=== PATIENT | female | born 1985 | race Caucasian/White ===

== ENCOUNTER → 2022-05-16 13:32 | Outpatient (BNVA) | payer OTHER, SELFPAY | PROVIDERS: PCP Internal Medicine; Referring Provider Internal Medicine; Visit Provider Internal Medicine | DX: R00.2 Palpitations (principal); R00.0 Tachycardia, unspecified | CPT/HCPCS: 93005; 99202 ==

== ENCOUNTER → 2022-06-07 09:28 | Outpatient (REF) | payer OTHER, SELFPAY ==
--- NOTE | 2022-06-07 09:33 | HM_ITS ---
* Total monitoring time 3 days and 1 hour. * Underlying rhythm is sinus. Average rate 95/Min. Range 58 to 155/Min. * About 45% the time, rate greater than 100/Min. * Very rare supraventricular and ventricular ectopy. * No significant pauses or bradycardia. * Symptoms in patient diary correlate with sinus rhythm and sinus tachycardia. MTDD
--- NOTE | 2022-06-07 09:33 | CA_ITS ---
Transthoracic Echocardiogram Patient (Last, First, Middle): Aziza Miner E Gender: Female Date of : 1985 Age: 36 Procedure Date: 06/07/2022 Procedure Type: Transthoracic Echocardiogram Location: OP Height: 172.72 cm Weight: 87.09 kg BSA: 2.01 m2 Heart Rate: 71 bpm BP: 120 / 75 mmHg Health Aide: EDGAR Referring MD: Gerson Ponce MD Symptoms: R00.2 - Palpitations Study Quality: Fair ECG Rhythm: Sinus Conclusions: - Normal left ventricular size, thickness, systolic function, and wall motion. The visually estimated ejection fraction is between 55-60%. Diastolic function is normal for age. - Normal right ventricular cavity size and systolic function. Findings Left Ventricle Normal left ventricular size, thickness, systolic function, and wall motion. The visually estimated ejection fraction is between 55-60%. Diastolic function is normal for age. Right Ventricle Normal right ventricular cavity size and systolic function. Atria Both atria are normal in size. Aortic Valve Normal aortic valve structure and function. There is no aortic valve stenosis. There is no aortic valve regurgitation. Mitral Valve Normal mitral valve structure and function. There is no mitral valve regurgitation. There is no mitral valve stenosis. Pulmonic Valve The pulmonic valve is likely normal. Tricuspid Valve Normal tricuspid valve structure. There is no tricuspid valve regurgitation. Tricuspid regurgitation envelope is inadequate for calculation of right ventricular systolic pressure. Normal right atrial pressure. Great Vessels All visible segments of the aorta are normal in size. Venous The inferior vena cava is normal in size and collapses greater than 50% with inspiration. Pericardium/Pleural There is no evidence of pericardial effusion. Prior Study Comparison No prior study available for comparison. Measurements 2D Linear Measurements IVSd: 0.80 0.6-0.9/0.6-1.0 cm LVIDd: 4.21 3.9-5.3/4.2-5.9 cm LVIDd Index: 2.09 2.4-3.2/2.2-3.1 cm/m2 LVIDs: 2.62 2.0-3.6 cm LVPWd: 0.76 0.7-1.1 cm LA Diam: 3.10 2.7-3.8/3.0-4.0 cm LAIDs Index: 1.54 1.5-2.3 cm/m2 LV Mass: 121.97 67-162/88-224 g LV Mass Index: 60.68 43-95/49-115 g/m2 LVOT Diam: 1.80 3.0+(-)1.3 cm 2D Systolic Function EF 4C: 67.70 >55% EF 2C: 57.50 >55% EF BiP: 62.20 >55% Mitral Valve MV Pk E: 0.87 MV PK A: 0.89 MV Decel Time: 178.00 E/A: 1.00 E'Lateral: 9.57 E'Medial: 8.81 E/E' Med: 9.90 E/E' Lat: 9.10 PHT: 52.00 MVA PHT: 4.23 Decel [place]: 4.87 Aortic Valve AoV Pk Johny: 1.55 AoV Mn Johny: 1.14 AoV VTI: 0.31 AoV Pk Grad: 10.00 Aov Mn Grad: 6.00 ZAYRA Cont.VTI: 2.34 LVOT LVOT Pk Johny: 1.56 LVOT Mn Johny: 0.98 LVOT VTI: 0.29 LVOT Pk Grad: 10.00 LVOT Mn Grad: 5.00 LVOT Diam: 1.80 LVOT Area: 2.54 Diastolic Function MV Pk E: 0.87 MV Pk A: 0.89 E/A: 1.00 E'Medial: 8.81 E/E' Med: 9.90 E' Laterial: 9.57 E/E' Lat: 9.10 Right Ventricle TAPSE (mm): 20.90 TVS' Johny: 11.40 Tricuspid Valve RA Press: 3.00 Great Vessels Aorta Sinus of Valsalva: 3.10 2.0-3.5 cm Ao Asc: 2.60 2.1-3.4 cm Pulmonary Valve PV Pk Johny: 0.94 Peak PV Grad: 4.00 Updated in Other Vendor System with Status of Final Jude Arias MD electronically signed on 06/09/2022 1:03:28 PM with status of Final
== END ==
LOC: HO.CARD 09:28
PROVIDERS: PCP Internal Medicine; Visit Provider Internal Medicine
DX: R00.2 Palpitations (principal)
CPT/HCPCS: 93242; 93306

== ENCOUNTER 2022-06-11 11:33 | Outpatient (REF) | payer OTHER, SELFPAY ==
[2022-06-11 14:15] LABS: Appearance Urine Hazy; Color Urine ORANGE; Glucose Urine UA 100 mg/dL (Negative); Leukocyte Esterase Urine Negative (Negative); Specific Gravity - Urine 1.025 (1.005-1.025); UMIC TRIGGER UACC YES; Urine Blood Negative (Negative); Urine Ketones Negative (Negative); Urine Protein 30 (1+) mg/dL (Neg-Trace)
[2022-06-11 14:25] LABS: Bacteria Urine None Seen (None Seen); Hyaline Casts Urine 0-2 /LPF (0-2); RBC Urine 0-2 /HPF (0-2); Squamous Epithelial Cell Urine 0-2 /HPF (0-2); WBC Urine 0-5 /HPF (0-5)
== END 2022-06-11 11:34 | disposition home or self-care (01) ==
LOC: HO.HMGCLDS 11:33
PROVIDERS: PCP Internal Medicine; Visit Provider Internal Medicine
DX: R30.0 Dysuria (principal)
CPT/HCPCS: 81001

== ENCOUNTER 2022-06-13 09:24 | Outpatient (REF) | payer OTHER, SELFPAY ==
[2022-06-13 11:23] LABS: Appearance Urine Clear; Color Urine Yellow; Glucose Urine UA Negative (Negative); Leukocyte Esterase Urine Negative (Negative); Nitrite Urine Negative (Negative); PH 7.5 (5.0-9.0); Specific Gravity - Urine 1.015 (1.005-1.025); Urine Blood Negative (Negative); Urine Ketones Negative (Negative); Urine Protein Negative (Neg-Trace)
[2022-06-13 11:24] LABS: Estimated Average Glucose 103 mg/dL; Hemoglobin A1c % 5.2 %
== END 2022-06-13 09:25 | disposition home or self-care (01) ==
LOC: HO.HMGCLDS 09:24
PROVIDERS: PCP Internal Medicine; Visit Provider Internal Medicine
DX: R30.0 Dysuria (principal); R81 Glycosuria
CPT/HCPCS: 36415; 81003; 83036

== ENCOUNTER 2022-06-18 08:32 | Outpatient (REF) | payer OTHER, SELFPAY ==
[2022-06-18 11:22] LABS: MANUAL DIFF FLAG NO
[2022-06-18 11:55] LABS: Alanine Aminotransferase 24 U/L (0-31); Anion Gap 13 (12-20); Aspartate Amino Transferase 19 U/L (5-31); Blood Urea Nitrogen 12 mg/dL (9-16); Carbon Dioxide 24 mmol/L (22-29); Chloride 105 mmol/L (96-108); Cholesterol 165 mg/dL; Estimated Glomerular Filt Rate > 60; Glucose Fasting 106 mg/dL (60-99); HDL Cholesterol 42 mg/dL; LDL Cholesterol Calculated 113 mg/dl; Potassium 4.2 mmol/L (3.3-5.1); Sodium 138 mmol/L (135-145); Triglycerides 51 mg/dL
[2022-06-18 12:06] LABS: TSH reflex Free T4 1.89 uIU/mL (0.32-4.0); Vitamin D 25-OH Total 21.4 ng/mL (>30)
[2022-06-18 12:07] LABS: Basophils Percent Auto 0.4 % (0-2); Eosinophils Absolute Auto 0.2 X10*3/uL (0.0-0.4); Eosinophils Percent Auto 3.7 % (0-4); Hematocrit 43.9 % (37.0-47.0); Hemoglobin 14.5 g/dl (12.0-16.0); Imm Gran Abs Auto 0.01 X10*3/uL (0.00-0.03); Imm Gran Pct Auto 0.2 % (0.0-0.4); Lymphocytes Absolute Auto 1.8 X10*3/uL (1.2-4.9); Lymphocytes Percent Auto 37.6 % (20-40); Mean Corpuscular Hemoglobin 29.2 pg (27.0-33.0); Mean Corpuscular Volume 88.5 fL (80.0-98.0); Mean Platelet Volume 10.4 fL (9.4-12.3); Monocytes Absolute Auto 0.4 X10*3/uL (0.1-1.2); Monocytes Percent Auto 7.4 % (2-11); Neutrophils Absolute Auto 2.5 x10*3/uL (2.0-8.3); Neutrophils Percent Auto 50.7 % (45-73); Platelet Count 306 X10*3/uL (160-400); Red Blood Count 4.96 X10*6/uL (4.20-5.50); White Blood Count 4.8 X10*3/uL (4.8-10.8)
== END 2022-06-18 08:33 | disposition home or self-care (01) ==
LOC: HO.HMGCLDS 08:32
PROVIDERS: PCP Internal Medicine; Visit Provider Internal Medicine
DX: Z00.01 Encounter for general adult medical examination with abnormal findings (principal); F41.1 Generalized anxiety disorder; F98.8 Other specified behavioral and emotional disorders with onset usually occurring in childhood and adolescence; R00.0 Tachycardia, unspecified; I10 Essential (primary) hypertension
CPT/HCPCS: 36415; 80048; 80061; 82306; 84443; 84450; 84460; 85025

== ENCOUNTER → 2022-07-30 14:16 | Outpatient (BNVA) | payer OTHER, SELFPAY | PROVIDERS: PCP Internal Medicine; Referring Provider Internal Medicine; Visit Provider Nurse Practitioner Family | DX: R00.2 Palpitations (principal); R00.0 Tachycardia, unspecified; F41.1 Generalized anxiety disorder | CPT/HCPCS: 99212 ==

== ENCOUNTER 2022-08-22 08:45 | Outpatient (REF) | payer OTHER, SELFPAY ==
[2022-08-22 11:52] LABS: Estimated Average Glucose 97 mg/dL
[2022-08-22 13:03] LABS: Cholesterol 152 mg/dL; Glucose Fasting 109 mg/dL (60-99); HDL Cholesterol 44 mg/dL; LDL Cholesterol Calculated 97 mg/dl; Triglycerides 57 mg/dL
[2022-08-22 13:24] LABS: Vitamin D 25-OH Total 23.5 ng/mL (>30)
== END 2022-08-22 08:46 | disposition home or self-care (01) ==
LOC: HO.HMGCLDS 08:45
PROVIDERS: PCP Internal Medicine; Visit Provider Internal Medicine
DX: Z00.01 Encounter for general adult medical examination with abnormal findings (principal); E66.3 Overweight; E55.9 Vitamin D deficiency, unspecified; R73.01 Impaired fasting glucose
CPT/HCPCS: 36415; 80061; 82306; 82947; 83036

== ENCOUNTER 2023-02-10 11:17 | Outpatient (REF) | payer OTHER, SELFPAY ==
[2023-02-10 15:04] LABS: Influenza A PCR NEGATIVE (Negative); Influenza B PCR NEGATIVE (Negative); Resp Syncy Virus RNA Qual PCR NEGATIVE (Negative); SARS COV2 PCR INHOUSE NEGATIVE (Negative)
== END 2023-02-10 11:18 | disposition home or self-care (01) ==
LOC: HO.LAB 11:17
PROVIDERS: Visit Provider Physician Assistant
DX: Z20.822 Contact with and (suspected) exposure to COVID-19 (principal); R53.83 Other fatigue
CPT/HCPCS: 0241U

== ENCOUNTER 2023-02-11 08:08 | Outpatient (REF) | payer OTHER, SELFPAY ==
[2023-02-11 11:48] LABS: Estimated Average Glucose 103 mg/dL; Hemoglobin A1C 137.7392 umol/L; Hemoglobin A1c % 5.2 %
[2023-02-11 12:00] LABS: Anion Gap 14 (12-20); Blood Urea Nitrogen 12 mg/dL (9-16); Calcium 9.6 mg/dL (8.4-10.2); Carbon Dioxide 25 mmol/L (22-29); Chloride 106 mmol/L (96-108); Estimated Glomerular Filt Rate > 60; Glucose Fasting 107 mg/dL (60-99); Potassium 4.6 mmol/L (3.3-5.1); Sodium 140 mmol/L (135-145)
[2023-02-11 12:11] LABS: Monotest Negative (Negative)
[2023-02-11 12:18] LABS: TSH reflex Free T4 2.69 uIU/mL (0.32-4.0)
== END 2023-02-11 08:09 | disposition home or self-care (01) ==
LOC: HO.HMGCLDS 08:08
PROVIDERS: PCP Internal Medicine; Visit Provider Physician Assistant
DX: R73.01 Impaired fasting glucose (principal); R53.83 Other fatigue
CPT/HCPCS: 36415; 80048; 83036; 84443; 86308

== ENCOUNTER 2023-07-14 08:29 | Outpatient (AMB) | payer OTHER, SELFPAY ==
--- NOTE | 2023-07-14 09:32 | MHC.OFFWIV ---
Intake Vital Signs 07/14/23 09:33 Height 5 ft 8 in Weight 176 lb 4 oz BMI 26.8 BP 110/78 Blood Pressure Location Rt brachial Position Sitting Pulse 117 H Pulse Source Pulse Oximeter Temp 98.0 F Temp Source Temporal Artery Scan Pulse Oximetry (%) 97 Oxygen Delivery Method Room Air Intake Visit Reasons: EST/abdominal discomfort?[phone] Intake Note: pt is here for c/o abd pain/discomfort on and off since last friday Patient Tobacco Use Status: Current everyday Tobacco user Allergies sulfamethoxazole [From BACTRIM] Adverse Reaction (Severe, Verified 07/14/23 10:04) NAUSEA & VOMITING amoxicillin [AMOXICILLIN] Adverse Reaction (Intermediate, Verified 07/14/23 10:04) NAUSEA & VOMITING, (per Pt, able to take) causes numbness in hands Medication List - Last Reconciled 07/14/23 by Harmeet Sears MD cholecalciferol (vitamin D3) 1,250 mcg PO QWEEK 3 months dexmethylphenidate ER 20 mg PO QAM levonorgestrel (Mirena) intrauterine lorazepam 0.5 mg PO DAILY PRN Do you need a note to return to daycare/school/sports/work: Yes HPI EST/abdominal discomfort?[phone] HPI Details 37-year-old female presents to the office for a sick visit. Patient reports she has minimal discomfort in the right lower quadrant. Symptoms have been present over the last week. Symptoms are relieved with passing urine. No relation to food. Occasionally on bending forwards she can reproduce the symptoms. No nausea or vomiting. [facility] Medical History (Updated 02/24/23 @ 12:22 by Roma Garcia MD) Impaired fasting glucose Glucosuria Sinus tachycardia Intermittent palpitations Decreased hearing of both ears [place] of toe Generalized anxiety disorder ADD (attention deficit disorder) Surgical History H/O cervical polypectomy Family History Maternal Grandfather Diabetes mellitus Sister Retinitis pigmentosa Other Retinitis Social History Housing: House Patient Tobacco Use Status: Current everyday Tobacco user Cigarettes Per Day: 10 e-Cigarette/Vaping Use: Never Used service: No Current occupational status: employed Cognitive needs: No Hearing needs: No Vision needs: Yes Physical Exam Vital Signs: Last Vital Signs Temp 98.0 F 07/14/23 09:33 Pulse 117 H 07/14/23 09:33 BP 110/78 07/14/23 09:33 Pulse Ox 97 07/14/23 09:33 Oxygen Delivery Method Room Air 07/14/23 09:33 BMI result Body Mass Index 26.8 Const General: cooperative and healthy appearing Nutritional Appearance: well nourished Orientation/consciousness: patient oriented x3 Limitations: no limitations HEENT Head: Yes normal to inspection Eyes General: appearance normal, both eyes and all related structures Neck Neck: Yes normal visual inspection Chest Chest palpation & inspection: normal palpation of entire chest wall Resp Effort & Inspection: normal respiratory effort Neuro General: patient oriented x3 Assessment & Plan Assessment & Plan (1) Abdominal pain: Code(s): R10.9 - Unspecified abdominal pain Plan: Urinalysis was reviewed. No antibiotics needed. Blood work has been ordered to check for possible hepatitis. Patient was advised that if symptoms persist, she needs to follow-up with her primary care provider. Coding Level of Care Code Est Pt Level 4 (11269) Diagnoses Abdominal pain R10.9
[2023-07-14 09:33] VITALS: BP 110/78; PULSE 117; TEMP 36.7; O2SAT 97; BMI 26.8
== END 2023-07-14 10:26 | disposition home or self-care (01) ==
PROVIDERS: PCP Internal Medicine; Visit Provider Internal Medicine
DX: R10.9 Unspecified abdominal pain (principal)
CPT/HCPCS: 81003; 99214

== ENCOUNTER 2023-07-14 10:13 | Outpatient (REF) | payer OTHER, SELFPAY ==
[2023-07-14 13:31] LABS: Hematocrit 46.7 % (37.0-47.0); Hemoglobin 15.4 g/dl (12.0-16.0); Mean Corpuscular Hemoglobin 29.4 pg (27.0-33.0); Mean Corpuscular Volume 89.1 fL (80.0-98.0); Mean Platelet Volume 10.7 fL (9.4-12.3); Platelet Count 283 X10*3/uL (160-400); Red Blood Count 5.24 X10*6/uL (4.20-5.50); Red Cell Distribution Width 12.1 % (11.0-16.0); White Blood Count 6.4 X10*3/uL (4.8-10.8)
[2023-07-14 13:58] LABS: Alanine Aminotransferase 26 U/L (0-31); Albumin Level 4.6 g/dL (3.5-5.0); Alkaline Phosphatase 56 U/L (39-117); Anion Gap 14 (12-20); Aspartate Amino Transferase 21 U/L (5-31); Bilirubin Direct 0.2 mg/dL (0.0-0.5); Bilirubin Total 0.4 mg/dL (0.0-1.0); Blood Urea Nitrogen 10 mg/dL (9-16); Calcium 9.7 mg/dL (8.4-10.2); Carbon Dioxide 22 mmol/L (22-29); Chloride 108 mmol/L (96-108); Estimated Glomerular Filt Rate > 60; Glucose Random 105 mg/dL (60-115); Potassium 3.7 mmol/L (3.3-5.1); Sodium 140 mmol/L (135-145); Thyroid Stimulating Hormone 0.65 uIU/mL (0.32-4.0); Total Protein 7.9 g/dL (6.5-8.0)
[2023-07-14 14:22] LABS: Erythrocyte Sedimentation Rate 5 MM/HR (0-20)
== END 2023-07-14 10:14 | disposition home or self-care (01) ==
LOC: HO.HMGCLDS 10:13
PROVIDERS: PCP Internal Medicine; Visit Provider Internal Medicine
DX: R10.9 Unspecified abdominal pain (principal)
CPT/HCPCS: 36415; 80048; 80076; 84443; 85027; 85652

== ENCOUNTER 2023-07-15 07:36 | Outpatient (REF) | payer OTHER, SELFPAY ==
[2023-07-15 11:45] LABS: Cholesterol 151 mg/dL (<200); HDL Cholesterol 48 mg/dL (>40); LDL Cholesterol Calculated 92 mg/dL (<100); Triglycerides 55 mg/dL (<150)
== END 2023-07-15 07:37 | disposition home or self-care (01) ==
LOC: HO.HMGCLDS 07:36
PROVIDERS: PCP Internal Medicine; Visit Provider Internal Medicine
DX: R10.9 Unspecified abdominal pain (principal)
CPT/HCPCS: 36415; 80061

== ENCOUNTER 2023-07-22 13:11 | Outpatient (AMB) | payer OTHER, SELFPAY ==
--- NOTE | 2023-07-22 13:16 | A.OFFPC_ITS ---
Vital Signs 07/22/23 13:30 Height 5 ft 8 in Weight 176 lb BMI 26.8 BP 100/68 Blood Pressure Location Rt brachial Position Sitting Pulse 93 Pulse Source Pulse Oximeter Pulse Oximetry (%) 97 Oxygen Delivery Method Room Air Intake Visit Reasons: abd pain, followup from [place] Intake Note: Pt is here today to f/u [place] for abdominal pain Allergies sulfamethoxazole [From BACTRIM] Adverse Reaction (Severe, Verified 07/22/23 13:44) NAUSEA & VOMITING amoxicillin [AMOXICILLIN] Adverse Reaction (Intermediate, Verified 07/22/23 13:44) NAUSEA & VOMITING, (per Pt, able to take) causes numbness in hands Medication List - Last Reconciled 07/22/23 by Roma Garcia MD cholecalciferol (vitamin D3) 1,250 mcg PO QWEEK 3 months dexmethylphenidate ER 30 mg PO DAILY levonorgestrel (Mirena) intrauterine lorazepam 0.5 mg PO DAILY PRN sertraline 37.5mg once a day Tobacco use date assessed: 07/22/23 Dental Screening Dental Screen Date: 07/22/23 Did you have a dental visit in the last 12 months?: Yes Did you have a dental problem in the last 6 months where you did not have access to dental care?: No Was dental information given to patient?: Patient has dentist HPI abd pain, followup from [place] HPI Details 37-year-old lady here today complaining of intermittent episodes of right lower quadrant pain, sometimes radiating to the left lower quadrant, which has been present now for the last 10 days. She denies any accompanying fever, no nausea, no urinary symptoms. CBC, electrolytes, renal function, liver enzymes, and urinalysis done all came back with unremarkable findings. Denies any constipation or blood in stool, no change in bowel habit. [facility] Medical History Impaired fasting glucose Glucosuria Sinus tachycardia Intermittent palpitations Decreased hearing of both ears [place] of toe Generalized anxiety disorder ADD (attention deficit disorder) Surgical History H/O cervical polypectomy Family History Maternal Grandfather Diabetes mellitus Sister Retinitis pigmentosa Other Retinitis Social History Housing: House Patient Tobacco Use Status: Current everyday Tobacco user Cigarettes Per Day: 10 e-Cigarette/Vaping Use: Never Used service: No Current occupational status: employed Cognitive needs: No Hearing needs: No Vision needs: Yes Questionnaire Thrive Questionnaire Date Thrive assessed: 05/01/22 I am a: Patient What is your living situation today?: I have a steady place to live Within the past 12 months, did the food you bought not last and you didn't have the money to get more?: Never true Within the past 12 months, did you worry whether your food would run out before you got money to buy more?: Never true Please select the resources that you would like help with: Food AUDIT C Alcohol Use Questionnaire (AUDIT-C) 1. How often do you have a drink containing alcohol?: Monthly or less 2. How many drinks containing alcohol do you have on a typical day when you are drinking?: 1 or 2 3. How often do you have six or more drinks on one occasion?: Less than monthly Total Score: 2 JOVITA-7 AMB Questionnaire JOVITA-7 Date JOVITA - 7 assessed: 05/01/22 Feeling nervous, anxious, or on edge: 0 = Not at all Not being able to stop or control worryin = Not at all Worrying too much about different things: 0 = Not at all Trouble relaxin = Not at all Being so restless that it is hard to sit still: 0 = Not at all Becoming easily annoyed or irritable: 0 = Not at all Feeling afraid as if something awful might happen: 0 = Not at all Total JOVITA-7 score (0-4 normal; 5-9 mild; 10-14 moderate; 15-21 severe): 0 Source: Developed by Drs. Samuel Lebron, Leia Arambula, Zac Feldman and colleagues, with an educational carlin from [employer]. JOVITA-7 Assessment Billing JOVITA-7 Assessment Tool: JOVITA-7 Assessment 07926 Review of Systems Const Denies body aches, Denies fatigue and Denies fever(s) ENT Reports no additional complaints Card Reports no additional complaints Resp Reports no additional complaints GI Reports as per HPI, Denies bloating, Denies excessive flatus, Denies early satiety, Denies heartburn and Denies vomiting Denies abnormal menses, Denies metrorrhagia, Denies hematuria, Denies urinary frequency, Denies difficulty voiding, Denies dysuria, Denies urinary incontinence, Denies urinary hesitancy, Denies urinary urgency and Denies vaginal discharge Musc Reports no additional complaints Skin/Breast Denies lesions and Denies rash Neuro Reports no additional complaints Endo Reports no additional complaints and Denies fatigue Johnathon/Lymph Reports no additional complaints Physical exam (Primary Care) Vital Signs: Last Vital Signs Pulse 93 07/22/23 13:30 BP 100/68 07/22/23 13:30 Pulse Ox 97 07/22/23 13:30 Oxygen Delivery Method Room Air 07/22/23 13:30 BMI result Body Mass Index 26.8 Tobacco/Smoking Status: Tobacco use Status Tobacco use date assessed 07/22/23 07/22/23 13:34 Patient Tobacco Use Status Current everyday Tobacco 07/22/23 13:18 e-Cigarette/Vaping Use Never Used 07/22/23 13:18 Thrive Assessment: Date of Thrive Assessment Date Thrive assessed 05/01/22 07/22/23 13:18 Const Other: Alert oriented x3, no acute distress noted, ambulatory with normal gait Orientation/consciousness: patient oriented x3 HENMD Mouth: Normal oral and palatal mucosa present, oropharynx normal and moist mucous membranes Neck Neck: Yes full ROM, Yes no lymphadenopathy and Yes supple Resp Auscultation: clear to auscultation bilaterally Cardio Other: S1-S2 present regular rate and rhythm GI Other: normal bowel sounds, soft, slight tenderness on deep palpation over right lower quadrant, no rebound or guarding Auscultation: normal bowel sounds General: Yes no CVA tenderness Back/Spine/Pelvis Back: no CVA tenderness and No back tenderness Skin General skin exam: no rashes or lesions noted Neuro General: patient oriented x3, gait normal, tone normal, moves all extremities, Normal light touch and pain sensation, no focal motor deficits and CN's II-XI intact bilaterally Extrem General: Yes full ROM, Yes no joint enlargement, Yes no clubbing, cyanosis or edema and Yes no pedal edema Results Reviewed Results Reviewed: ENTERED: 07/15/232026 [facility] DR: Roma Garcia MD ORDERED: Lipid Panel Test Result Flag Reference Site Triglyceride 55 <150 mg/dL Desirable Triglyceride: less than 150 mg/dL Borderline High Triglyceride 150-199 mg/dL High Triglyceride: 200-499 mg/dL Very High Triglyceride: greater than or equal to 5OO mg/dL Cholesterol 151 <200 mg/dL Desirable Cholesterol: less than 200 mg/dL Borderline High Cholesterol: 200-239 mg/dL High Cholesterol: greater than 239 mg/dL LDL Calculated 92 <100 mg/dL Desirable LDL: less than 100 mg/dL Near Optimal/Above Optimal LDL: 110-129 mg/dL Borderline High LDL: 130-159 mg/dL High LDL: 160-189 mg/dL Very High LDL: greater than or equal to 190 mg/dL HDL 48 >40 mg/dL Desirable HDL: greater than 40 mg/dL Note: This HDL assay may give artificially low results in patients with liver disease. RUN: 07/22/23 1342 PAGE 1 [facility] [address] [place] [id number] [employer] Passenger Vessel: Albino Hall M.D. Specimen Inquiry Name: Aziza Miner Age/Sex: 37/F : 1985 Unit#: [id number] Attend Dr: Harmeet Sears MD Re07/14/23 Status: DEP REF Location: HO.HMGCLDS Disch: SPEC : [id number] ANTHONY: 07/14/23 STATUS: COMP REQ : [id number] RECD: 07/14/[address] [facility] [address]: Harmeet Sears MD COMP: 07/14/23 ENTERED: 07/14/23-[address] [facility] [address]: Roma Garcia MD ORDERED: CBC No Diff Test Result Flag Reference Site WBC 6.4 4.8-10.8 X10*3/uL RBC 5.24 4.20-5.50 X10*6/uL HGB 15.4 12.0-16.0 g/dl HCT 46.7 37.0-47.0 % MCV 89.1 80.0-98.0 fL MCH 29.4 27.0-33.0 pg MCHC 33.0 31.0-35.0 g/dl RDW 12.1 11.0-16.0 % PLT 283 160-400 X10*3/uL MPV 10.7 9.4-12.3 fL NRBC Pct Auto 0.0 0.0-0.2 /100WBC NRBC Abs Auto 0.000 0.0-0.012 X10*3/uL Assessment and Plan Assessment & Plan (1) Right lower quadrant pain: Code(s): R10.31 - Right lower quadrant pain Plan: Discussed results of recent lab with patient which all showed unremarkable findings. Ordered an ultrasound of the pelvic and transvaginal for further evaluation and management. Patient also advised to follow-up with her OBGYN at [facility] Orders: Orders US pelvic and transvaginal Today R10.31 - Right lower quadrant pain Coding Level of Care Code Est Pt Level 3 (55271) Diagnoses Right lower quadrant pain R10.31 Additional Codes JOVITA-7 Assessment Billing - JOVITA-7 Assessment Tool: JOVITA-7 Assessment 45844 ([id number])
[2023-07-22 13:30] VITALS: BP 100/68; PULSE 93; O2SAT 97; BMI 26.8
== END 2023-07-22 14:23 | disposition home or self-care (01) ==
PROVIDERS: PCP Internal Medicine; Visit Provider Internal Medicine
DX: R10.31 Right lower quadrant pain (principal)
CPT/HCPCS: 99213

== ENCOUNTER 2023-07-22 14:14 | Outpatient (REF) | payer OTHER, SELFPAY ==
--- NOTE | ~2023-07-22 | US_ITS ---
EXAMINATION: US PELVIS CLINICAL INFORMATION: Right lower quadrant pain LMP 07/20/2023 COMPARISON: Pelvic ultrasound 08/04/2018, 06/11/2018 TECHNIQUE: Ultrasound of the pelvis is performed using both transabdominal and transvaginal transducers along with Doppler. Transvaginal imaging is performed due to inadequate visualization transabdominally. FINDINGS: Uterus: The uterus is anteverted and measures 7.0 x 3.0 x 5.3 cm. No focal fibroid The endometrial is homogeneous and measures 0.19 cm. IUD appears in proper position. Adnexa: Both ovaries are visualized. There is normal color flow to the adnexa. There is no ovarian torsion. There is no pelvic ascites or fluid collection. Right ovary measures 3.3 x 1.3 x 2.5 cm. Volume 5.7 mL. Views of the left ovary are slightly limited by bowel gas. Left ovary measures 2.3 x 1.8 x 1.7 cm. Volume 3.5 mL. US/US pelvic and transvaginal IMPRESSION: 1. Normal uterus and ovaries. 2. IUD appears in proper position.
== END 2023-07-22 14:15 | disposition home or self-care (01) ==
LOC: HO.HMGCX 14:14
PROVIDERS: PCP Internal Medicine; Visit Provider Internal Medicine
DX: R10.31 Right lower quadrant pain (principal)
CPT/HCPCS: 76830; 76856

== ENCOUNTER 2023-08-19 11:20 | Outpatient (REF) | payer OTHER, SELFPAY ==
--- NOTE | ~2023-08-19 | US_ITS ---
EXAMINATION: US RETROPERITONEAL LIMITED (RENAL ONLY) CLINICAL INFORMATION: Abdominal pain. Flank pain. COMPARISON: None available. TECHNIQUE: Real-time imaging of the kidneys. FINDINGS: RIGHT KIDNEY: 11.9 x 4.6 x 5.2 cm (SAG x AP x TRV). The kidney is normal in size, contour, and echogenicity. Renal cortical thickness is normal. No calculi or focal parenchymal lesions. No hydronephrosis. 0.4 x 0.4 x 0.5 cm echogenic avascular focus without associated shadowing in the mid kidney could represent an angiomyolipoma. Follow-up in 6 months could be performed with confirm stability. LEFT KIDNEY: 12.4 x 5.2 x 5.4 cm (SAG x AP x TRV). The kidney is normal in size, contour, and echogenicity. Renal cortical thickness is normal. No calculi or focal parenchymal lesions. No hydronephrosis. US/US renal BI IMPRESSION: 1. 0.5 cm echogenic avascular focus in the mid right kidney could represent an angiomyolipoma. Follow-up in 6 months could be performed with confirm stability. 2. Normal appearance of the left kidney.
== END 2023-08-19 11:21 | disposition home or self-care (01) ==
LOC: HO.HMGCX 11:20
PROVIDERS: PCP Internal Medicine; Visit Provider Internal Medicine
DX: R10.9 Unspecified abdominal pain (principal)
CPT/HCPCS: 76775

== ENCOUNTER 2023-10-22 11:24 | Outpatient (AMB) | payer OTHER, SELFPAY ==
--- NOTE | 2023-10-22 11:31 | MHC.OFFVIS ---
Intake Intake Visit Reasons: disorders of kidney and ureter Intake Note: New Patient presents for initial visit for right angiomyolipoma kidney Urology Medications: none Blood Thinner: none Medical Biller Coder Required: No Accompanied by: Self / Same As Patient Allergies sulfamethoxazole [From BACTRIM] Adverse Reaction (Severe, Verified 10/22/23 12:36) NAUSEA & VOMITING amoxicillin [AMOXICILLIN] Adverse Reaction (Intermediate, Verified 10/22/23 12:36) NAUSEA & VOMITING, (per Pt, able to take) causes numbness in hands Medication List - Last Reconciled 10/22/23 by FRANKY Gonzalez- cholecalciferol (vitamin D3) 1,250 mcg PO QWEEK 3 months dexmethylphenidate ER 30 mg PO DAILY levonorgestrel (Mirena) intrauterine lorazepam 0.5 mg PO DAILY PRN sertraline 37.5mg once a day HPI HPI Comments History of Present Illness Details Aziza is a very pleasant 38-year-old female patient of Dr. Garcia. She has a PMH of glucosuria, sinus tachycardia, intermittent palpitations, decreased hearing of both ears, generalized anxiety disorder, and attention deficit disorder. She presents to the office today as a new patient for angiomyolipoma. She discusses having followed up with her PCP for ongoing medical issues she has been experiencing over the last year. She reports initially symptoms started with generalized abdominal pain followed by episodes of tachycardia and lower leg edema. She reports more recently she has been experiencing lower back pain. She discusses following up with her PCP regarding these issues at which time a renal ultrasound was ordered for further assessment evaluation and patient was noted to have angiomyolipoma and recommendations were made for urology referral. These results were reviewed with the patient today. Right kidney is normal in size, contour, and echogenicity. No hydronephrosis or lesions. 0.4 x 0.4 x 0.5 cm echogenic avascular focus without associated shadowing in the mid kidney could represent an angiomyolipoma. Follow-up in 6 months could be performed with confirm stability recommended by radiology report. Left kidney is normal in size, contour, and echogenicity. No calculi, lesions, and or hydronephrosis. She also discusses following up with cardiology and undergoing an echocardiogram and Holter monitor and findings were all normal. When asked she denies any bothersome urinary issues. She denies urinary urgency, urinary frequency, incontinence, nocturia, hematuria, dysuria, foul smelling urine, changes to urinary stream, flank pain, fever, and or chills. She is happy with her current voiding parameters. She does continue to report low back pain and does not feel this is musculoskeletal related. In office urinalysis results reviewed with the patient today. She otherwise offers no other issues or concerns at this time. [facility] Medical History (Updated 10/22/23 @ 22:10 by CARLIE Gonzalez) Right renal mass Impaired fasting glucose Glucosuria Sinus tachycardia Intermittent palpitations Decreased hearing of both ears [place] of toe Generalized anxiety disorder ADD (attention deficit disorder) Surgical History H/O cervical polypectomy Family History Maternal Grandfather Diabetes mellitus Sister Retinitis pigmentosa Other Retinitis Social History Housing: House Patient Tobacco Use Status: Current everyday Tobacco user Cigarettes Per Day: 10 e-Cigarette/Vaping Use: Never Used service: No Current occupational status: employed Cognitive needs: No Hearing needs: No Vision needs: Yes Review of Systems Const Reports as per [facility] Eyes Reports no additional complaints ENT Reports no additional complaints Card Reports as per [facility] Resp Reports no additional complaints GI Reports no additional complaints Reports as per HPI Musc Reports as per HPI Neuro Reports no additional complaints Psych Reports as per [facility] Endo Reports as per HPI Johnathon/Lymph Reports no additional complaints Aller/Immun Reports no additional complaints Physical Exam Const General: cooperative, healthy appearing, comfortable, no acute distress, well developed, alert and awake Orientation/consciousness: patient oriented x3 Limitations: no limitations HEENT Head: Yes normal to inspection, Yes normocephalic and Yes atraumatic Ears: hearing grossly normal bilaterally Eyes General: appearance normal, both eyes and all related structures Neck Neck: Yes normal visual inspection and Yes trachea midline Chest Chest palpation & inspection: normal inspection of the chest Resp Effort & Inspection: normal respiratory effort and able to speak in complete sentences Cardio Rate: regular rate GI Inspection: Yes normal to inspection General: Yes no CVA tenderness Back/Spine/Pelvis Back: no CVA tenderness Skin General skin exam: no rashes or lesions noted Neuro General: patient oriented x3 Extrem General: Yes normal to inspection Psych Appearance: grossly normal and well kempt Mental Status: mental status grossly normal Speech and movement: Normal speech and movement present and Clear speech present Affect: normal affect Attitude: cooperative Thought process: Normal thought process present Thought content: Normal thought content present Insight: Fair insight present (Psych) Judgement: Fair judgement present (Psych) Results AMB Urinalysis, Automated UA Leukoctes 0 Kris/uL Last Edit by Jovana Westbrookrey Westbrook [facility] on 10/22/23 11:45 UA Nitrite Negative Last Edit by Jovana Westbrookrey Westbrook [facility] on 10/22/23 11:45 UA Urobilinogen 0.2 mg/dL Last Edit by Jovana Westbrookrey Westbrook [facility] on 10/22/23 11:45 UA Protein 0 mg/dL Last Edit by Jovana Westbrookrey Westbrook [facility] on 10/22/23 11:45 UA pH 6.0 Last Edit by Jovana Westbrookrey Westbrook [facility] on 10/22/23 11:45 UA Blood 0 Justin/uL Last Edit by Jovana Westbrookrey Westbrook [facility] on 10/22/23 11:45 UA Specific [place] 1.030 Last Edit by Jovana Westbrookrey Westbrook [facility] on 10/22/23 11:45 UA Ketone Negative Last Edit by Jovana Westbrook [facility] on 10/22/23 11:45 UA Bilirubin 0 mg/dL Last Edit by Jovana Westbrookrey Westbrook [facility] on 10/22/23 11:45 UA Glucose 0 mg/dL Last Edit by Jovana Westbrookrey Westbrook [facility] on 10/22/23 11:45 Results Reviewed Results Reviewed: Laboratory Last Values Urine pH (Auto) 6.0 10/22/23 11:42 Specific [place] (Auto) 1.030 10/22/23 11:42 Urine Protein (Auto) 0 mg/dL 10/22/23 11:42 Glucose (UA)(Auto) 0 mg/dL 10/22/23 11:42 Urine Ketones (Auto) Negative 10/22/23 11:42 Urine Blood (Auto) 0 Justin/uL 10/22/23 11:42 Urine Nitrite (Auto) Negative 10/22/23 11:42 Urine Bilirubin (Auto) 0 mg/dL 10/22/23 11:42 Urine Urobilinogen (Auto) 0.2 mg/dL 10/22/23 11:42 Leukocyte Esterase (Auto) 0 Kris/uL 10/22/23 11:42 Date of Service: 08/19/23 EXAMINATION: US RETROPERITONEAL LIMITED (RENAL ONLY) Real-time imaging of the kidneys. FINDINGS: RIGHT KIDNEY: 11.9 x 4.6 x 5.2 cm (SAG x AP x TRV). The kidney is normal in size, contour, and echogenicity. Renal cortical thickness is normal. No calculi or focal parenchymal lesions. No hydronephrosis. 0.4 x 0.4 x 0.5 cm echogenic avascular focus without associated shadowing in the mid kidney could represent an angiomyolipoma. Follow-up in 6 months could be performed with confirm stability. LEFT KIDNEY: 12.4 x 5.2 x 5.4 cm (SAG x AP x TRV). The kidney is normal in size, contour, and echogenicity. Renal cortical thickness is normal. No calculi or focal parenchymal lesions. No hydronephrosis. IMPRESSION: 1. 0.5 cm echogenic avascular focus in the mid right kidney could represent an angiomyolipoma. Follow-up in 6 months could be performed with confirm stability. 2. Normal appearance of the left kidney. Assessment & Plan Assessment & Plan (1) Angiolipoma: Code(s): D17.9 - Benign lipomatous neoplasm, unspecified Plan In office urinalysis results reviewed with the patient today; as noted above. Recent renal ultrasound results reviewed with the patient today; as noted above. Discussed at length potential causes of angiomyolipomas; this was discussed at length; reassurance provided. She currently denies any bothersome urinary issues or concerns. She reports be happy with current voiding parameters. Discussed obtaining MRI in 6 months for surveillance imaging. Follow-up in 6 months with imaging to be completed prior; or sooner with any issues, concerns, and or questions. Orders: Orders AMB Urinalysis Automated Today R33.9 - Retention of urine, unspecified MR kidney wo/w con Today D17.9 - Benign lipomatous neoplasm, unspecified Patient Instructions: The patient had an opportunity to ask questions regarding the treatment plan. All questions were answered. Physical exam, labs, and imaging were discussed and reviewed in detail. As well as risks, benefits, and discussion of treatment choices. No major barriers to understanding were identified. The patient expressed understanding and agreement with the above treatment plan. The patient was made aware they should contact our office by phone for worsening of their current condition, the appearance of new symptoms, or with any questions or concerns. Compliance is encouraged with any medications and follow up testing that is ordered. It is a privilege to be allowed the opportunity to participate in? your urological care.? Again, if you have any questions or concerns If you have any questions or concerns please do not hesitate to contact me. The office is [phone]. This note is constructed using voice recognition software. While every effort has been made to ensure accuracy [employer] errors may have been included. Yours sincerely, RENA Gonzalez Coding Level of Care Code New Pt Level 3 (47658) Diagnoses Angiolipoma D17.9
== END 2023-10-22 12:19 | disposition home or self-care (01) ==
PROVIDERS: PCP Internal Medicine; Visit Provider Nurse Practitioner Family
DX: D17.9 Benign lipomatous neoplasm, unspecified (principal)
CPT/HCPCS: 99203

== ENCOUNTER → 2023-10-22 11:24 | Outpatient (BNVA) | payer OTHER, SELFPAY | PROVIDERS: PCP Internal Medicine; Visit Provider Nurse Practitioner Family | DX: D17.9 Benign lipomatous neoplasm, unspecified (principal) | CPT/HCPCS: 81003; 99202 ==

== ENCOUNTER 2024-01-26 08:56 | Outpatient (AMB) | payer OTHER, SELFPAY ==
[2024-01-26 08:57] VITALS: BP 120/60; PULSE 96; TEMP 36.5; O2SAT 98; BMI 28.1
--- NOTE | 2024-01-26 08:57 | AM.OFFWIN_ITS ---
Intake Vital Signs 01/26/24 08:57 Height 5 ft 8 in Weight 185 lb BMI 28.1 BP 120/60 Blood Pressure Location Lt brachial Position Sitting Pulse 96 Pulse Source Pulse Oximeter Temp 97.7 F Temp Source Temporal Artery Scan Pulse Oximetry (%) 98 Oxygen Delivery Method Room Air Intake Visit Reasons: EP bump on lower back Intake Note: pt is here today for bump on lower back started friday Patient Tobacco Use Status: Current everyday Tobacco user Allergies sulfamethoxazole [From BACTRIM] Adverse Reaction (Severe, Verified 01/26/24 09:00) NAUSEA & VOMITING amoxicillin [AMOXICILLIN] Adverse Reaction (Intermediate, Verified 01/26/24 09:00) NAUSEA & VOMITING, (per Pt, able to take) causes numbness in hands Do you need a note to return to daycare/school/sports/work: No HPI HPI Comments History of Present Illness Details Patient presents to the walk-in today for sick visit Reports she was stretching and felt a lump to her right lower back/upper buttock Nontender to palpation Denies fever, chills, weakness, dizziness, syncope, drainage from the site, body aches, fatigue [facility] Medical History (Updated 01/26/24 @ 10:53 by Bree Diaz APRN, DATA CAPTURE SPECIALIST) Right renal mass Impaired fasting glucose Glucosuria Sinus tachycardia Intermittent palpitations Decreased hearing of both ears [place] of toe Generalized anxiety disorder ADD (attention deficit disorder) Surgical History H/O cervical polypectomy Family History Maternal Grandfather Diabetes mellitus Sister Retinitis pigmentosa Other Retinitis Social History Housing: House Patient Tobacco Use Status: Current everyday Tobacco user Cigarettes Per Day: 10 e-Cigarette/Vaping Use: Never Used service: No Current occupational status: employed Cognitive needs: No Hearing needs: No Vision needs: Yes Review of Systems Const All systems reviewed & are unremarkable except as noted in HPI and below Physical Exam Vital Signs: Last Vital Signs Temp 97.7 F 01/26/24 08:57 Pulse 96 01/26/24 08:57 BP 120/60 01/26/24 08:57 Pulse Ox 98 01/26/24 08:57 Oxygen Delivery Method Room Air 01/26/24 08:57 BMI result Body Mass Index 28.1 General: awake, alert, oriented. Answers questions appropriately. Fully engaged in examination. Skin: warm, dry, intact HEENT: Normocephalic. Hearing intact. Cardiac: External chest normal in appearance. Respiratory: No cough, audible wheezing or stridor. Abdomen: without gross distension. MS: No obvious swelling or deformities. nontender palpable band upper right gluteus katrin Neurological: Oriented to person, place, time and situation. Thought process intact. No gait abnormalities appreciated. Psychiatric: Appropriate mood and affect. Good judgment and insight. Assessment & Plan Assessment & Plan (1) Lipoma of buttock: Code(s): D17.1 - Benign lipomatous neoplasm of skin and subcutaneous tissue of trunk Plan nontender band across upper right gluteus katrin without signs of local or systemic infection. Reassurance provided. Follow up with pcp or return to walkin for any new or worsening symptoms. Coding Level of Care Code Est Pt Level 3 (92769) Diagnoses Lipoma of buttock D17.1
== END 2024-01-26 09:46 | disposition home or self-care (01) ==
PROVIDERS: PCP Internal Medicine; Visit Provider Registered Nurse Emergency
DX: D17.1 Benign lipomatous neoplasm of skin and subcutaneous tissue of trunk (principal)
CPT/HCPCS: 99213

== ENCOUNTER 2024-04-09 09:20 | Outpatient (REF) | payer OTHER, SELFPAY ==
--- NOTE | ~2024-04-09 | MR_ITS ---
EXAMINATION: MR KIDNEY WITHOUT AND WITH CONTRAST CLINICAL INFORMATION: Right kidney echogenic lesion. COMPARISON: Ultrasound examination of the kidneys on 08/19/2023 TECHNIQUE: Examination was performed in a high field strength MRI scanner. Multiplanar multiphasic imaging of the abdomen was performed without IV contrast enhancement. Multiphasic Axial T1 weighted fat suppressed images of the upper abdomen were obtained after IV injection of 8.5 mL Gadavist. Coronal T1 weighted fat-suppressed images of the abdomen were obtained following the dynamic axial series. FINDINGS: LIVER: The liver shows a 1.0 cm round T2 hyperintense lesion in left hepatic lobe segment IVb, showing centripetal contrast filling, consistent with cavernous hemangioma. The calculated hepatic fat percentage is 3.6%, compatible with normal. HEPATOBILIARY: Gallbladder is normal without filling defects. Common bile duct is not dilated. PANCREAS: No focal pancreatic lesion with abnormal signal can be seen. SPLEEN: Spleen is normal in size without focal lesion. ADRENAL: Bilateral adrenal glands are normal in shape and size. KIDNEYS: Bilateral kidneys are normal in size without focal lesion. A shadow cortical defect, containing retroperitoneal fat is seen at posterior lateral mid right renal cortex. No focal lesion with abnormal signal or enhancement could be seen in bilateral kidneys. MR/MR kidney wo/w con IMPRESSION: 1. 1.0 cm cavernous hemangioma in left hepatic lobe segment IVb. 2. No evidence of cholelithiasis or choledocholithiasis. 3. No evidence of bile duct dilatation. 4. Apart from shallow right posterior lateral mid renal cortical defect containing retroperitoneal fat, No focal renal lesion with abnormal signal or enhancement, including the right mid kidney over the site of hyperechoic lesion found on ultrasound examination.
[2024-04-09] MEDS: gadobutroL 10 ML VIAL IVPUSH (10:33)
== END 2024-04-09 09:21 | disposition home or self-care (01) ==
LOC: HO.MRI 09:20
PROVIDERS: PCP Internal Medicine; Visit Provider Nurse Practitioner Family
DX: D17.9 Benign lipomatous neoplasm, unspecified (principal)
CPT/HCPCS: 74183; A9585

== ENCOUNTER 2024-04-19 09:58 | Outpatient (AMB) | payer OTHER, SELFPAY ==
--- NOTE | 2024-04-19 10:20 | MHC.OFFWIV ---
Intake Vital Signs 04/19/24 10:25 Height 5 ft 8 in Weight 187 lb 4 oz BMI 28.5 BP 122/72 Blood Pressure Location Lt brachial Position Sitting Pulse 76 Pulse Source Pulse Oximeter Temp 98.6 F Temp Source Oral Pulse Oximetry (%) 97 Oxygen Delivery Method Room Air Intake Visit Reasons: EP cold symptoms, ear ache [phone] Intake Note: Patient here for cold symptoms and left ear pain which has been present since friday. Patient Tobacco Use Status: Former Tobacco user Smoking End Date: 09/08/23 Allergies sulfamethoxazole [From BACTRIM] Adverse Reaction (Severe, Verified 01/26/24 09:00) NAUSEA & VOMITING amoxicillin [AMOXICILLIN] Adverse Reaction (Intermediate, Verified 01/26/24 09:00) NAUSEA & VOMITING, (per Pt, able to take) causes numbness in hands Do you need a note to return to daycare/school/sports/work: No HPI HPI Comments History of Present Illness Details Patient is a 38-year-old female complaining of 4 days of cold symptoms and 2 days of left ear pain. She states she has had a sore throat, cough, head congestion and has just developed pain in her left ear yesterday. She states she has a history of ear infections as a child but never developed a fever with them. She denies any shortness of breath, chest pain, wheezing, chest congestion, sinus pain or fever. She has not tried taking any medications to make herself feel better. [facility] Medical History (Updated 04/19/24 @ 10:50 by Carol Zabala PA-C) Right renal mass Impaired fasting glucose Glucosuria Sinus tachycardia Intermittent palpitations Decreased hearing of both ears [place] of toe Generalized anxiety disorder ADD (attention deficit disorder) Surgical History H/O cervical polypectomy Family History Maternal Grandfather Diabetes mellitus Sister Retinitis pigmentosa Other Retinitis Social History Housing: House Patient Tobacco Use Status: Former Tobacco user Cigarettes Per Day: 10 e-Cigarette/Vaping Use: Never Used service: No Current occupational status: employed Cognitive needs: No Hearing needs: No Vision needs: Yes Review of Systems Const All systems reviewed & are unremarkable except as noted in HPI and below Physical Exam Vital Signs: Last Vital Signs Temp 98.6 F 04/19/24 10:25 Pulse 76 04/19/24 10:25 BP 122/72 04/19/24 10:25 Pulse Ox 97 04/19/24 10:25 Oxygen Delivery Method Room Air 04/19/24 10:25 BMI result Body Mass Index 28.5 Const General: cooperative, healthy appearing, comfortable and no acute distress Orientation/consciousness: patient oriented x3 Limitations: no limitations HEENT Head: Yes normal to inspection Ears: hearing grossly normal bilaterally, external ears normal, TM normal on the right and TM abnormal dull, erythematous and with loss of landmarks General nose exam: Normal external nose present, Normal nares present and No nasal discharge present Face and sinus: Yes normal facial exam and Yes sinuses nontender Mouth: Normal oral and palatal mucosa present and moist mucous membranes Throat: Yes tonsils normal, Yes uvula midline and Yes posterior oropharynx abnormal (Erythema) Eyes General: appearance normal, both eyes and all related structures Neck Neck: Yes normal visual inspection Resp Effort & Inspection: normal respiratory effort, able to speak in complete sentences, no respiratory distress, not tachypneic, no tripod positioning and no use of accessory muscles Skin General skin exam: no rashes or lesions noted Neuro General: patient oriented x3 Extrem General: Yes normal to inspection and Yes no clubbing, cyanosis or edema Assessment & Plan Assessment & Plan (1) Otitis media: Code(s): H66.90 - Otitis media, unspecified, unspecified ear Qualifiers: Otitis media type: other nonsuppurative Chronicity: acute Laterality: left Recurrence: non-recurrent Qualified Code(s): H65.192 - Other acute nonsuppurative otitis media, left ear Plan: Send prescription for Cefuroxime as pt allergic to amoxicillin. Plan See above Medications: New cefuroxime axetil 500 mg PO Q12H 10 tabs 0RF Coding Level of Care Code Est Pt Level 3 (85637) Diagnoses Other non-recurrent acute nonsuppurative otitis media of left ear H65.192 Otitis media type: other nonsuppurative Chronicity: acute Laterality: left Recurrence: non-recurrent
[2024-04-19 10:25] VITALS: BP 122/72; PULSE 76; TEMP 37; O2SAT 97; BMI 28.5
== END 2024-04-19 11:38 | disposition home or self-care (01) ==
PROVIDERS: PCP Internal Medicine; Visit Provider Physician Assistant
DX: H65.192 Other acute nonsuppurative otitis media, left ear (principal)
CPT/HCPCS: 99213

== ENCOUNTER 2024-04-20 09:15 | Outpatient (AMB) | payer OTHER, SELFPAY ==
--- NOTE | 2024-04-20 09:16 | A.OFFVIS_ITS ---
Intake Visit Reasons: 6m/MRI(set) Intake Note: Patient presents today for tele- visit follow up on: right angiomyolipoma kidney MRI results Imaging Completed: 04/09/24 Urology Medications: none Blood Thinner: none [employer] Required: No Allergies sulfamethoxazole [From BACTRIM] Adverse Reaction (Severe, Verified 04/20/24 10:03) NAUSEA & VOMITING amoxicillin [AMOXICILLIN] Adverse Reaction (Intermediate, Verified 04/20/24 10:03) NAUSEA & VOMITING, (per Pt, able to take) causes numbness in hands Medication List - Last Reconciled 04/20/24 by FARNKY Gonzalez-ASAD cefuroxime axetil 500 mg PO Q12H cholecalciferol (vitamin D3) 1,250 mcg PO QWEEK 3 months dexmethylphenidate ER 30 mg PO DAILY levonorgestrel (Mirena) intrauterine lorazepam 0.5 mg PO DAILY PRN sertraline 37.5mg once a day HPI Comments Details: Aziza is a very pleasant 38-year-old female patient of Dr. Garcia. She has a PMH of glucosuria, sinus tachycardia, intermittent palpitations, d ecreased hearing of both ears, generalized anxiety disorder, and attention deficit disorder. She is being followed up on today via video telehealth for her angiolipoma. In discussion with the patient today she reports to be doing and feeling well. She reports since her last office visit here approximately 6 months ago she has had no bothersome urinary issues or concerns. If she reports flank pain she had been experiencing has since subsided. Recent MRI results reviewed with the patient today. 1.0 cm cavernous hemangioma in left hepatic lobe segment IVb. No evidence of cholelithiasis or choledocholithiasis. No evidence of bile duct dilatation. Apart from shallow right posterior lateral mid renal cortical defect containing retroperitoneal fat, No focal renal lesion with abnormal signal or enhancement, including the right mid kidney over the site of hyperechoic lesion found on ultrasound examination. When asked she denies any bothersome urinary issues. She denies urinary urgency, urinary frequency, incontinence, nocturia, hematuria, dysuria, foul smelling urine, changes to urinary stream, flank pain, fever, and or chills. She is happy with her current voiding parameters. She discusses her most recent visit to urgent care for otitis media and is currently on antibiotic therapy. She otherwise offers no other issues or concerns at this time. [facility] Medical History Right renal mass Impaired fasting glucose Glucosuria Sinus tachycardia Intermittent palpitations Decreased hearing of both ears [place] of toe Generalized anxiety disorder ADD (attention deficit disorder) Surgical History H/O cervical polypectomy Family History Maternal Grandfather Diabetes mellitus Sister Retinitis pigmentosa Other Retinitis Social History Housing: House Patient Tobacco Use Status: Former Tobacco user Cigarettes Per Day: 10 e-Cigarette/Vaping Use: Never Used service: No Current occupational status: employed Cognitive needs: No Hearing needs: No Vision needs: Yes Review of Systems Const Reports as per HPI Eyes Reports no additional complaints ENT Reports as per HPI Card Reports as per HPI Resp Reports no additional complaints GI Reports no additional complaints Reports as per HPI Musc Reports as per HPI Neuro Reports no additional complaints Psych Reports as per HPI Endo Reports as per HPI Johnathon/Lymph Reports no additional complaints Aller/Immun Reports no additional complaints Physical Exam Const General: cooperative, healthy appearing, comfortable, no acute distress, well developed, alert and awake Orientation/consciousness: patient oriented x3 Resp Effort & Inspection: normal respiratory effort and able to speak in complete sentences Neuro General: patient oriented x3 Psych Appearance: grossly normal and well kempt Mental Status: mental status grossly normal Speech and movement: Clear speech present Attitude: cooperative Thought process: Normal thought process present Thought content: Normal thought content present Insight: Fair insight present (Psych) Judgement: Fair judgement present (Psych) Telehealth Telehealth Telehealth Platform: [facility] Location of provider rendering services: practice address Location of patient: address on file Patient Identification confirmed using: Name, : Yes Telehealth method: video Patient verbally consented to treatment: Yes Patient verbally consented to billing insurance company: Yes Patient informed of any privacy concerns related to visit: Yes Minutes spent on Phone/Video with Pt.: 15 Results Reviewed Results Reviewed: EXAMINATION: MR KIDNEY WITHOUT AND WITH CONTRAST FINDINGS: LIVER: The liver shows a 1.0 cm round T2 hyperintense lesion in left hepatic lobe segment IVb, showing centripetal contrast filling, consistent with cavernous hemangioma. The calculated hepatic fat percentage is 3.6%, compatible with normal. HEPATOBILIARY: Gallbladder is normal without filling defects. Common bile duct is not dilated. PANCREAS: No focal pancreatic lesion with abnormal signal can be seen. SPLEEN: Spleen is normal in size without focal lesion. ADRENAL: Bilateral adrenal glands are normal in shape and size. KIDNEYS: Bilateral kidneys are normal in size without focal lesion. A shadow cortical defect, containing retroperitoneal fat is seen at posterior lateral mid right renal cortex. No focal lesion with abnormal signal or enhancement could be seen in bilateral kidneys. IMPRESSION: 1. 1.0 cm cavernous hemangioma in left hepatic lobe segment IVb. 2. No evidence of cholelithiasis or choledocholithiasis. 3. No evidence of bile duct dilatation. 4. Apart from shallow right posterior lateral mid renal cortical defect containing retroperitoneal fat, No focal renal lesion with abnormal signal or enhancement, including the right mid kidney over the site of hyperechoic lesion found on ultrasound examination. Assessment & Plan Assessment & Plan (1) Angiolipoma: Code(s): D17.9 - Benign lipomatous neoplasm, unspecified Category: Medical Plan Recent MRI results reviewed with the patient today; as noted above. Patient currently denies any bothersome urinary issues or concerns. She reports be happy with current voiding parameters. Will continue with surveillance monitoring. Will obtain renal ultrasound in 6 months. Follow-up in 6 months with imaging to be completed prior; or sooner with any issues, concerns, and or questions. Orders: Orders US retroperitoneal comp 6 Months D17.9 - Benign lipomatous neoplasm, uns pecified Patient Instructions: The patient had an opportunity to ask questions regarding the treatment plan. All questions were answered. Physical exam, labs, and imaging were discussed and reviewed in detail. As well as risks, benefits, and discussion of treatment choices. No major barriers to understanding were identified. The patient ex pressed understanding and agreement with the above treatment plan. The patient was made aware they should contact our office by phone for worsening of their current condition, the appearance of new symptoms, or with any questions or concerns. Compliance is encouraged with any medications and follow up testing that is ordered. It is a privilege to be allowed the opportunity to participate in? your urological care.? Again, if you have any questions or concerns If you have any questions or concerns please do not hesitate to contact me. The office is [phone]. This note is constructed using voice recognition software. While every effort has been made to ensure accuracy build technician errors may have been included. Yours sincerely, FRANKY Gonzalez-ASAD Coding Level of Care Code Tele Est Pt Level 3 (31353) Diagnoses Angiolipoma D17.9
== END 2024-04-20 10:55 | disposition home or self-care (01) ==
LOC: HO.HUSH 09:16
PROVIDERS: PCP Internal Medicine; Visit Provider Nurse Practitioner Family
DX: D17.9 Benign lipomatous neoplasm, unspecified (principal)
CPT/HCPCS: 99213

== ENCOUNTER → 2024-04-20 09:15 | Outpatient (BNVA) | payer OTHER, SELFPAY | PROVIDERS: PCP Internal Medicine; Visit Provider Nurse Practitioner Family ==

== ENCOUNTER 2024-05-22 09:09 | Outpatient (AMB) | payer OTHER, SELFPAY ==
--- NOTE | 2024-05-22 09:10 | AM.OFFWIN_ITS ---
Intake Vital Signs 05/22/24 09:15 Height 5 ft 8 in Weight 188 lb BMI 28.6 BP 110/80 Blood Pressure Location Rt brachial Position Sitting Pulse 98 Pulse Source Pulse Oximeter Temp 99.1 F Temp Source Oral Pulse Oximetry (%) 98 Oxygen Delivery Method Room Air Intake Visit Reasons: EP Covid? Intake Note: Patient here because she tested positive about a week ago and is still having SOB, loss of taste and smell, brain fog, mild cough and weakness. Patient Tobacco Use Status: Former Tobacco user Allergies sulfamethoxazole [From BACTRIM] Adverse Reaction (Severe, Verified 05/22/24 09:18) NAUSEA & VOMITING amoxicillin [AMOXICILLIN] Adverse Reaction (Intermediate, Verified 05/22/24 09:18) NAUSEA & VOMITING, (per Pt, able to take) causes numbness in hands Do you need a note to return to daycare/school/sports/work: Yes HPI HPI Comments History of Present Illness Details 38 y/o female patient who presents to [facility] walk in clinic with c/o URI symptoms for about 1 week now. She tested positive for COVID 19 infection about 1 week ago. Pt c/o fatigue, malaise, body aches and coughing. [facility] Medical History Right renal mass Impaired fasting glucose Glucosuria Sinus tachycardia Intermittent palpitations Decreased hearing of both ears [place] of [place] Generalized anxiety disorder ADD (attention deficit disorder) Surgical History H/O cervical polypectomy Family History Maternal Grandfather Diabetes mellitus Sister Retinitis pigmentosa Other Retinitis Social History Housing: House Patient Tobacco Use Status: Former Tobacco user Cigarettes Per Day: 10 e-Cigarette/Vaping Use: Never Used service: No Current occupational status: employed Cognitive needs: No Hearing needs: No Vision needs: Yes Review of Systems Const All systems reviewed & are unremarkable except as noted in HPI and below Physical Exam Vital Signs: Last Vital Signs Temp 99.1 F 05/22/24 09:15 Pulse 98 05/22/24 09:15 BP 110/80 05/22/24 09:15 Pulse Ox 98 05/22/24 09:15 Oxygen Delivery Method Room Air 05/22/24 09:15 BMI result Body Mass Index 28.6 Const General: cooperative and no acute distress Orientation/consciousness: patient oriented x3 HEENT Head: Yes normocephalic Ears: external ears normal and TM abnormal bulging bilateral and with fluid behind the TM bilateral; not erythematous, not perforated and not retracted General nose exam: Abnormal mucous membranes and turbinates present boggy and erythematous Face and sinus: Yes sinuses nontender Mouth: moist mucous membranes Throat: Yes postnasal drainage Resp Effort & Inspection: normal respiratory effort and able to speak in complete sentences Auscultation: clear to auscultation bilaterally, no crackles, no rales, no rhonchi and no wheezes Cardio Heart sounds: S1 normal heart sound present and S2 normal heart sound present Neuro General: patient oriented x3, gait normal and moves all extremities Psych Speech and movement: Normal speech and movement present Assessment & Plan Assessment & Plan (1) COVID-19: Code(s): U07.1 - COVID-19 Plan: Rest and hydrate well Acetaminophen for pain relief Discussed isolation precautions. Orders: Orders SARS-CoV2/FLU/RSV Today J06.9 - Acute upper respiratory infection, unspecified Medications: New nirmatrelvir-ritonavir 300 mg (150 mg x 2)-100 mg (Paxlovid) take TWO 150 mg tablets of nirmatrelvir with ONE 100 mg tablet of ritonavir twice daily for 5 days PO 30 ea 0RF J06.9 - Acute upper respiratory infection, unspecified, U07.1 - COVID-19 acetaminophen 1,000 mg (2 x 500 mg) PO Q6H PRN 30 caps 0RF pain U07.1 - COVID- 19 benzonatate 100 mg PO TID 90 caps 0RF U07.1 - COVID-19 Coding Level of Care Code Est Pt Level 3 (90161) Diagnoses COVID-19 U07.1 Time Spent (min) 15
[2024-05-22 09:15] VITALS: BP 110/80; PULSE 98; TEMP 37.3; O2SAT 98; BMI 28.6
== END 2024-05-22 09:50 | disposition home or self-care (01) ==
PROVIDERS: PCP Internal Medicine; Visit Provider Nurse Practitioner Family
DX: U07.1 COVID-19 (principal)
CPT/HCPCS: 99051; 99213

== ENCOUNTER 2024-05-22 09:24 | Outpatient (REF) | payer OTHER, SELFPAY ==
[2024-05-22 12:22] LABS: Influenza A PCR NEGATIVE (Negative); Influenza B PCR NEGATIVE (Negative); Resp Syncy Virus RNA Qual PCR NEGATIVE (Negative); SARS COV2 PCR INHOUSE POSITIVE (Negative)
== END 2024-05-22 09:25 | disposition home or self-care (01) ==
LOC: HO.LAB 09:24
PROVIDERS: Visit Provider Nurse Practitioner Family
DX: J06.9 Acute upper respiratory infection, unspecified (principal)
CPT/HCPCS: 0241U

== ENCOUNTER 2024-08-04 12:18 | Outpatient (AMB) | payer OTHER, SELFPAY ==
[2024-08-04 12:53] VITALS: BP 136/92; PULSE 124; O2SAT 99; BMI 30.7
--- NOTE | 2024-08-04 12:53 | MHC.PC.OV ---
Vital Signs 08/04/24 12:53 Height 5 ft 8 in Weight 202 lb BMI 30.7 BP 136/92 H Blood Pressure Location Lt brachial Position Sitting Pulse 124 H Pulse Source Pulse Oximeter Pulse Oximetry (%) 99 Oxygen Delivery Method Room Air Intake Visit Reasons: Physical Exam Intake Note: Pt is here today for her PE Allergies sulfamethoxazole [From BACTRIM] Adverse Reaction (Severe, Verified 08/04/24 13:22) NAUSEA & VOMITING amoxicillin [AMOXICILLIN] Adverse Reaction (Intermediate, Verified 08/04/24 13:22) NAUSEA & VOMITING, (per Pt, able to take) causes numbness in hands Medication List - Last Reconciled 08/04/24 by Roma Garcia MD acetaminophen 1,000 mg (2 x 500 mg) PO Q6H PRN cholecalciferol (vitamin D3) 1,250 mcg PO QWEEK 3 months dexmethylphenidate ER 30 mg PO DAILY levonorgestrel (Mirena) intrauterine lorazepam 0.5 mg PO DAILY PRN sertraline 50 mg PO Tobacco use date assessed: 08/04/24 Dental Screening Dental Screen Date: 08/04/24 Did you have a dental visit in the last 12 months?: No Did you have a dental problem in the last 6 months where you did not have access to dental care?: No Was dental information given to patient?: Patient has dentist HPI Physical Exam HPI Details The patient is a 39-year-old female presenting for an annual physical examination, with concerns primarily regarding increased anxiety and persistent fatigue post-COVID infection. She reports a history of anxiety, which has recently exacerbated due to various stressors including political events, leading to the resumption of lorazepam along with sertraline for management. Current sertraline dosage is 50 mg, with consideration to increase to 75 mg. She also experiences severe fatigue following a COVID-19 infection in May of this year, reporting persistent exhaustion, difficulty performing daily activities, and disrupted exercise routines due to lack of energy. She notes cognitive difficulties described as mental fog. Her anxiety symptoms are a longstanding issue, previously discussed and managed with her psychiatrist. She is overdue for her cervical cancer screening, last done in 2017 with negative findings. Additionally, the patient is concerned about the management of her Mirena IUD, inserted in November 2020. She is confused about its replacement timeline. On dermatological note, she reports increased acne following regular mask usage. The patient had recent polyp removal in 2020 but no other significant gynecological concerns raised. Noted to have elevated heart rate on this visit. She has been seen and evaluated by Cardiology in the past, Labs done showed normal white count, no anemia, normal TSH, normal electrolytes. EKG done 05/16/2022 shows sinus tach, rate 103, normal OR and QRS intervals. Holter monitor done on 06/07/2022 for 3 days shows sinus rhythm with average heart rate 95, heart rate range 58 to 155, 45% of the time heart rate greater than 100. Echocardiogram done 06/07/2022 showing EF 55-60%, diastolic function normal, RV normal. All results were reviewed by senior account director with patient at that time, and discussed conservative measures including good hydration, exercise as tolerated, avoidance of stimulants/caffeinated beverages, anxiety reduction. [facility] Medical History History of COVID-19 Impaired fasting glucose Decreased hearing of both ears [place] of toe Generalized anxiety disorder ADD (attention deficit disorder) Surgical History H/O cervical polypectomy Family History Maternal Grandfather Diabetes mellitus Sister Retinitis pigmentosa Other Retinitis Social History Housing: House Patient Tobacco Use Status: Former Tobacco user Cigarettes Per Day: 10 e-Cigarette/Vaping Use: Never Used service: No Current occupational status: employed Cognitive needs: No Hearing needs: No Vision needs: Yes Questionnaire PHQ-9 Over the last 2 weeks, how often have you been bothered by any of the following problems? 1. Little interest or pleasure in doing things: not at all 2. Feeling down, depressed, or hopeless: not at all 3. Trouble falling or staying asleep, or sleeping too much: not at all 4. Feeling tired or having little energy: nearly every day 5. Poor appetite or overeating: not at all 6. Feeling bad about yourself - or that you are a failure or have let yourself or your family down: not at all 7. Trouble concentrating on things, such as reading the newspaper or watching television: nearly every day 8. Moving or speaking so slowly that other people could have noticed. Or the opposite - being so fidgety or restless that you have been moving around a lot more than usual: not at all 9. Thoughts that you would be better off or of hurting yourself in some way: not at all Total score: 6 Depression Screening Interpretation: Positive (ff'd by : DARIN ARANA ) Depression Screening Follow-up: Existing condition, In treatment and Community Mental Health Worker F/U Depression Screening Done: Yes 80092 - PHQ-9 Billing: Yes Source: Developed by Drs. Samuel Lebron, Leia Arambula, Zac Feldman and colleagues, with an educational carlin from [employer]. Thrive Questionnaire Date Thrive assessed: 08/04/24 I am a: Patient What is your living situation today?: I have a steady place to live Within the past 12 months, did the food you bought not last and you didn't have the money to get more?: Never true Within the past 12 months, did you worry whether your food would run out before you got money to buy more?: Never true Do you have trouble paying for medicines?: No Do you have trouble getting transportation to medical appointments?: No Do you have trouble paying your heating and electricity bill?: No Do you have trouble taking care of your child, family member or friend?: No Do you have trouble with day-to-day activities such as bathing, preparing meals, shopping, managing finances, etc.?: No Are you currently unemployed and looking for a job?: No Are you interested in more education?: No Please select the resources that you would like help with: None Currently or been in a relationship where the following occur: I choose not to answer THRIVE Score: 0 AUDIT C Alcohol Use Questionnaire (AUDIT-C) 1. How often do you have a drink containing alcohol?: Monthly or less 2. How many drinks containing alcohol do you have on a typical day when you are drinking?: 1 or 2 3. How often do you have six or more drinks on one occasion?: Never Total Score: 1 JOVITA-7 AMB Questionnaire JOVITA-7 Date JOVITA - 7 assessed: 08/04/24 Feeling nervous, anxious, or on edge: 3 = Nearly every day Not being able to stop or control worryin = Nearly every day Worrying too much about different things: 3 = Nearly every day Trouble relaxin = Nearly every day Being so restless that it is hard to sit still: 0 = Not at all Becoming easily annoyed or irritable: 1 = Several days Feeling afraid as if something awful might happen: 3 = Nearly every day Total JOVITA-7 score (0-4 normal; 5-9 mild; 10-14 moderate; 15-21 severe): 16 Source: Developed by Drs. Samuel Lebron, Leia Arambula, Zac Feldman and colleagues, with an educational carlin from [employer]. JOVITA-7 Assessment Billing JOVITA-7 Assessment Tool: JOVITA-7 Assessment 84022 Review of Systems Const Denies body aches and Denies fever(s) ENT Reports no additional complaints Card Reports no additional complaints Resp Reports no additional complaints GI Reports as per HPI, Denies bloating, Denies excessive flatus, Denies early satiety, Denies heartburn and Denies vomiting Denies abnormal menses, Denies metrorrhagia, Denies hematuria, Denies urinary frequency, Denies difficulty voiding, Denies dysuria, Denies urinary incontinence, Denies urinary hesitancy, Denies urinary urgency and Denies vaginal discharge Musc Reports no additional complaints Skin/Breast Denies lesions and Denies rash Neuro Reports no additional complaints Psych Reports as per HPI (Currently being followed by Psychiatry) Endo Reports no additional complaints Johnathon/Lymph Reports no additional complaints Aller/Immun Reports no additional complaints Physical exam (Primary Care) Vital Signs: Last Vital Signs Pulse 124 H 08/04/24 12:53 BP 136/92 H 08/04/24 12:53 Pulse Ox 99 08/04/24 12:53 Oxygen Delivery Method Room Air 08/04/24 12:53 BMI result Body Mass Index 30.7 Tobacco/Smoking Status: Tobacco use Status Tobacco use date assessed 08/04/24 08/04/24 12:55 Patient Tobacco Use Status Former Tobacco user 08/04/24 12:55 e-Cigarette/Vaping Use Never Used 08/04/24 12:55 PHQ-9: PHQ-9 Score PHQ-9: Total score 6 08/07/24 05:19 Depression Screening Interpretation: Positive (ff'd by : DARIN ARANA ) Depression Screening Follow-up: Existing condition, In treatment and Community Mental Health Worker F/U Thrive Assessment: Date of Thrive Assessment Date Thrive assessed 08/04/24 08/04/24 12:58 Currently or been in a relationship where the following occur: I choose not to answer Const Other: Alert oriented x3, no acute distress noted, ambulatory with normal gait Orientation/consciousness: patient oriented x3 HENMT Mouth: Normal oral and palatal mucosa present, oropharynx normal and moist mucous membranes Eyes General: appearance normal, both eyes and all related structures Neck Neck: Yes full ROM, Yes no lymphadenopathy and Yes supple Chest Chest palpation & inspection: normal inspection of the chest Breast/axilla inspection: normal inspection of the breasts Breast/axilla palpation: normal palpation of the breasts Resp Auscultation: clear to auscultation bilaterally Cardio Other: S1-S2 present tachycardic GI Auscultation: normal bowel sounds General: Yes no CVA tenderness Back/Spine/Pelvis Back: no CVA tenderness and No back tenderness Skin Other: Raised papular lesions on chin, lower half of face Neuro General: patient oriented x3, gait normal, tone normal, moves all extremities, Normal light touch and pain sensation, no focal motor deficits and CN's II-XI intact bilaterally Extrem General: Yes full ROM, Yes no joint enlargement, Yes no clubbing, cyanosis or edema and Yes no pedal edema Psych Appearance: grossly normal and well kempt Mental Status: mental status grossly normal Speech and movement: Normal speech and movement present Affect: normal affect Attitude: cooperative Thought process: Normal thought process present Thought content: Normal thought content present Office Procedures Flu Questionnaire Does the patient have a severe egg allergy?: No Does the patient have severe life threatening allergies?: No Does the patient have a fever or illness today?: No Has the patient ever had Guillain-[place] Syndrome?: No Has the patient ever had any past reaction to a flu shot?: No Immunizations Fluarix Triv 3277-2632 (PF) 45 mcg (15 mcg x 3)/0.5 mL IM syringe Performing Provider: Roma Garcia MD Performing Location: [facility] Administered by: Nayely Mauricio CMA on 08/04/24 13:59 Dose Route Admin Location Dispensed Lot Number Expiration Date NDC Food Services Manager 0.5 mL IM Left Tricep 0.5 mL [id number] 03/07/25 41086-871-14 [employer] VIS Given Date VIS Provided VIS Publication Date 08/04/24 Single Vaccine 21 Eligibility Eligibility Date Funding Source Not VFC Eligible 08/04/24 Private Results Reviewed Results Reviewed: wen: Aziza Miner Age/Sex: 37/F : 1985 Unit#: [id number] Attend Dr: Harmeet Sears MD Re07/15/23 Status: DEP REF Location: [facility] Disch: SPEC : [id number] ANTHONY: 07/15/23 STATUS: COMP REQ : [id number] RECD: 07/15/[address]: Harmeet Sears MD COMP: 07/15/23 ENTERED: 07/15/[address]: Roma Garcia MD ORDERED: Lipid Panel Test Result Flag Reference Triglyceride 55 <150 mg/dL Desirable Triglyceride: less than 150 mg/dL Borderline High Triglyceride 150-199 mg/dL High Triglyceride: 200-499 mg/dL Very High Triglyceride: greater than or equal to 5OO mg/dL Cholesterol 151 <200 mg/dL Desirable Cholesterol: less than 200 mg/dL Borderline High Cholesterol: 200-239 mg/dL High Cholesterol: greater than 239 mg/dL LDL Calculated 92 <100 mg/dL Desirable LDL: less than 100 mg/dL Near Optimal/Above Optimal LDL: 110-129 mg/dL Borderline High LDL: 130-159 mg/dL High LDL: 160-189 mg/dL Very High LDL: greater than or equal to 190 mg/dL HDL 48 >40 mg/dL Desirable HDL: greater than 40 mg/dL Note: This HDL assay may give artificially low results in patients with liver disease. Coding Level of Care Code Est Pt Prev Care 18-39y(68976) Diagnoses Annual visit for general adult medical examination with abnormal findings Z00.01 Postviral fatigue syndrome G93.31 Fatigue type: postviral fatigue syndrome Needs flu shot Z23 Additional Codes JOVITA-7 Assessment Billing - JOVITA-7 Assessment Tool: JOVITA-7 Assessment 92675 ([id number]) PHQ-9 - 01936 - PHQ-9 Billing: Yes ([id number]) Assessment & Plan Assessment & Plan (1) Annual visit for general adult medical examination with abnormal findings: Code(s): Z00.01 - Encounter for general adult medical examination with abnormal findings (2) Fatigue: Code(s): R53.83 - Other fatigue Qualifiers: Fatigue type: postviral fatigue syndrome Qualified Code(s): G93.31 - Postviral fatigue syndrome (3) Needs flu shot: Code(s): Z23 - Encounter for immunization Plan - Long COVID Syndrome: Encourage gradual and varied exercise regimens while monitoring fatigue, await improving symptomatology prior to new COVID-19 vaccination considerations. - Acne Vulgaris: Interim advice on facial acne care including cleansing methods; refer for dermatological consultation if acne persists or worsens. Prescription sent for doxycycline 100 mg per capsule to take 1 capsule every 12 hours for 10 days. - IUD Management: No immediate action required; routine follow-up for management unless symptoms arise. During the visit, I detailed the treatment options for her anxiety, considering a potential increase in sertraline dosage based on symptoms and ongoing psychiatric input. We discussed the option of optimizing non-pharmacological strategies, such as yoga and meditation, which might ameliorate anxiety exacerbated by occupational stress. Regarding her long-COVID symptoms, I advised a structured approach to gradually reintroduce physical activity and energy management strategies, noting the importance of symptom-guided exercise adjustments. The patient was informed about potential long-term effects of COVID-19 and it was emphasized that vaccination should coincide with an improvement in post-COVID symptoms. I reviewed the implications of wearing a mask on skin conditions and suggested visiting a heart nurse for professional management if [id number] solutions prove inadequate. The timeline of her Mirena IUD was clarified, discussing expected longevity and current correct placement. Relevant follow-up evaluations and timelines were outlined, with emphasis on ensuring their alignment to her symptomatic improvement and state of recovery. Patient was informed and verbally consented to the use of an ambient scribe for clinic note documentation during this visit. Orders: Orders Complete Blood Count Auto Diff 08/04/24 R53.83 - Other fatigue, Z00.01 - Encounter for general adult medical examination with abnormal findings, Z13.1 - Encounter for screening for diabetes mellitus, Z13.220 - Encounter for screening for lipoid disorders, Z71.89 - Other specified counseling, Z86.16 - Personal history of COVID-19 Basic Metabolic Panel Fasting 08/04/24 R53.83 - Other fatigue, Z00.01 - Encounter for general adult medical examination with abnormal findings, Z13.1 - Encounter for screening for diabetes mellitus, Z13.220 - Encounter for screening for lipoid disorders, Z71.89 - Other specified counseling, Z86.16 - Personal history of COVID-19 Alanine Aminotransferase 08/04/24 R53.83 - Other fatigue, Z00.01 - Encounter for general adult medical examination with abnormal findings, Z13.1 - Encounter for screening for diabetes mellitus, Z13.220 - Encounter for screening for lipoid disorders, Z71.89 - Other specified counseling, Z86.16 - Personal history of COVID-19 Lipid Panel 08/04/24 R53.83 - Other fatigue, Z00.01 - Encounter for general adult medical examination with abnormal findings, Z13.1 - Encounter for screening for diabetes mellitus, Z13.220 - Encounter for screening for lipoid disorders, Z71.89 - Other specified counseling, Z86.16 - Personal history of COVID-19 Influenza 8089-1339 Immunization 08/04/24 Z23 - Encounter for immunization Aspartate Amino Transferase 08/04/24 R53.83 - Other fatigue, Z00.01 - Encounter for general adult medical examination with abnormal findings, Z13.1 - Encounter for screening for diabetes mellitus, Z13.220 - Encounter for screening for lipoid disorders, Z71.89 - Other specified counseling, Z86.16 - Personal history of COVID-19 Vitamin D 25-OH Total 08/04/24 R53.83 - Other fatigue, Z00.01 - Encounter for general adult medical examination with abnormal findings, Z13.1 - Encounter for screening for diabetes mellitus, Z13.220 - Encounter for screening for lipoid disorders, Z71.89 - Other specified counseling, Z86.16 - Personal history of COVID-19 Medications: New doxycycline hyclate 100 mg PO BID 20 caps 0RF
== END 2024-08-04 14:19 | disposition home or self-care (01) ==
PROVIDERS: PCP Internal Medicine; Visit Provider Internal Medicine
DX: Z00.01 Encounter for general adult medical examination with abnormal findings (principal); G93.31 Postviral fatigue syndrome; Z23 Encounter for immunization

== ENCOUNTER → 2024-08-04 12:18 | Outpatient (BNVA) | payer OTHER, SELFPAY | PROVIDERS: PCP Internal Medicine; Visit Provider Internal Medicine | DX: Z00.01 Encounter for general adult medical examination with abnormal findings (principal); Z23 Encounter for immunization; G93.31 Postviral fatigue syndrome | CPT/HCPCS: 90471; 90656; 96127; 99395 ==

== ENCOUNTER 2024-08-16 10:03 | Outpatient (REF) | payer OTHER, SELFPAY ==
[2024-08-16 13:23] LABS: MANUAL DIFF FLAG NO
[2024-08-16 13:26] LABS: Basophils Percent Auto 0.3 % (0-2); Eosinophils Absolute Auto 0.1 X10*3/uL (0.0-0.4); Eosinophils Percent Auto 1.4 % (0-4); Hematocrit 43.6 % (37.0-47.0); Hemoglobin 14.2 g/dl (12.0-16.0); Imm Gran Abs Auto 0.01 X10*3/uL (0.00-0.03); Imm Gran Pct Auto 0.2 % (0.0-0.4); Lymphocytes Absolute Auto 2.2 X10*3/uL (1.2-4.9); Lymphocytes Percent Auto 37.8 % (20-40); Mean Corpuscular HGB Conc 32.6 g/dl (31.0-35.0); Mean Corpuscular Hemoglobin 29.2 pg (27.0-33.0); Mean Corpuscular Volume 89.5 fL (80.0-98.0); Mean Platelet Volume 10.4 fL (9.4-12.3); Monocytes Absolute Auto 0.4 X10*3/uL (0.1-1.2); Monocytes Percent Auto 6.7 % (2-11); Neutrophils Absolute Auto 3.1 x10*3/uL (2.0-8.3); Neutrophils Percent Auto 53.6 % (45-73); Platelet Count 313 X10*3/uL (160-400); Red Blood Count 4.87 X10*6/uL (4.20-5.50); Red Cell Distribution Width 12.3 % (11.0-16.0); White Blood Count 5.9 X10*3/uL (4.8-10.8)
[2024-08-16 14:06] LABS: Alanine Aminotransferase 27 U/L (0-31); Anion Gap 9 (12-20); Aspartate Amino Transferase 27 U/L (5-31); Blood Urea Nitrogen 8 mg/dL (9-16); Calcium 8.8 mg/dL (8.4-10.2); Carbon Dioxide 26 mmol/L (22-29); Chloride 106 mmol/L (96-108); Cholesterol 146 mg/dL (<200); Estimated Glomerular Filt Rate > 60; Glucose Fasting 105 mg/dL (60-99); HDL Cholesterol 51 mg/dL (>40); LDL Cholesterol Calculated 84 mg/dL (<100); Potassium 3.8 mmol/L (3.3-5.1); Sodium 137 mmol/L (135-145); Triglycerides 59 mg/dL (<150); Vitamin D 25-OH Total 49.7 ng/mL (>30)
== END 2024-08-16 10:04 | disposition home or self-care (01) ==
LOC: HO.HMGCLDS 10:03
PROVIDERS: PCP Internal Medicine; Visit Provider Internal Medicine
DX: Z00.01 Encounter for general adult medical examination with abnormal findings (principal); Z71.89 Other specified counseling; Z13.220 Encounter for screening for lipoid disorders; Z13.1 Encounter for screening for diabetes mellitus; R53.83 Other fatigue; Z86.16 Personal history of COVID-19
CPT/HCPCS: 36415; 80048; 80061; 82306; 84450; 84460; 85025

== ENCOUNTER 2024-08-23 12:59 | Outpatient (AMB) | payer OTHER, SELFPAY ==
[2024-08-23 13:06] VITALS: BP 128/74; PULSE 112; TEMP 36.6; O2SAT 100; BMI 30.7
--- NOTE | 2024-08-23 13:06 | MHC.OFFWIV ---
Intake Vital Signs 08/23/24 13:06 Height 5 ft 8 in Weight 202 lb 4 oz BMI 30.7 BP 128/74 Blood Pressure Location Lt brachial Position Sitting Pulse 112 H Pulse Source Pulse Oximeter Temp 97.9 F Temp Source Temporal Artery Scan Pulse Oximetry (%) 100 Oxygen Delivery Method Room Air Intake Visit Reasons: EP rash under both breast Intake Note: Pt presents to the office today for c/o rash under both breasts x1 month. Pt states she put on athletes cream under her breasts which helped but she wants it double checked today. Patient Tobacco Use Status: Former Tobacco user Allergies sulfamethoxazole [From BACTRIM] Adverse Reaction (Severe, Verified 08/23/24 13:09) NAUSEA & VOMITING amoxicillin [AMOXICILLIN] Adverse Reaction (Intermediate, Verified 08/23/24 13:09) NAUSEA & VOMITING, (per Pt, able to take) causes numbness in hands HPI EP rash under both breast HPI Details This note is constructed using voice recognition software. While every effort has been made to ensure accuracy, service center coordinator errors may have been included. The patient is a 39 year old female who presents to the clinic today with rash under both breasts for the past 2 weeks. She notes that it started off as a moist, red rash, and reports that she does sweat bit. She immediately started an nyqc-zzu-wbnuuzt antifungal cream clotrimazole, which has significantly reduced the moisture, the redness, and the itch. She wanted to or how long she should be using this medication, and if this was the right answer for her symptoms. She denies fever, chills, body aches, joint pains. [facility] Medical History History of COVID-19 Impaired fasting glucose Decreased hearing of both ears [place] of toe Generalized anxiety disorder ADD (attention deficit disorder) Surgical History H/O cervical polypectomy Family History Maternal Grandfather Diabetes mellitus Sister Retinitis pigmentosa Other Retinitis Social History Housing: House Patient Tobacco Use Status: Former Tobacco user Cigarettes Per Day: 10 e-Cigarette/Vaping Use: Never Used service: No Current occupational status: employed Cognitive needs: No Hearing needs: No Vision needs: Yes Review of Systems Const All systems reviewed & are unremarkable except as noted in HPI and below Physical Exam Vital Signs: Last Vital Signs Temp 97.9 F 08/23/24 13:06 Pulse 112 H 08/23/24 13:06 BP 128/74 08/23/24 13:06 Pulse Ox 100 08/23/24 13:06 Oxygen Delivery Method Room Air 08/23/24 13:06 BMI result Body Mass Index 30.7 Const General: cooperative, healthy appearing, comfortable, no acute distress and well developed Orientation/consciousness: patient oriented x3 Limitations: no limitations Resp Effort & Inspection: normal respiratory effort and able to speak in complete sentences Skin Other: Minimally erythematous flat irregular bordered rash beneath both breasts, with fungal odor. Neuro General: patient oriented x3 Assessment & Plan Assessment & Plan (1) Rash: Code(s): R21 - Rash and other nonspecific skin eruption Plan: Fungal in origin. Patient is treating appropriately with the clotrimazole, we will have her continue this. Advised when symptoms have resolved to keep area clean, dry, follow up as needed with worsening or failure to resolve. Plan See above for full details and plan. Coding Level of Care Code Est Pt Level 3 (43838) Diagnoses Rash R21
== END 2024-08-23 14:48 | disposition home or self-care (01) ==
PROVIDERS: PCP Internal Medicine; Visit Provider Registered Nurse
DX: R21 Rash and other nonspecific skin eruption (principal)

== ENCOUNTER → 2024-08-23 12:59 | Outpatient (BNVA) | payer OTHER, SELFPAY | PROVIDERS: PCP Internal Medicine; Visit Provider Registered Nurse | DX: R21 Rash and other nonspecific skin eruption (principal) | CPT/HCPCS: 99212 ==

== ENCOUNTER 2024-10-04 09:39 | Outpatient (AMB) | payer OTHER, SELFPAY ==
[2024-10-04 10:39] VITALS: BP 130/80; PULSE 90; TEMP 36.8; O2SAT 98; BMI 30.1
--- NOTE | 2024-10-04 10:39 | AM.OFFWIN_ITS ---
Intake Vital Signs 3 10/04/24 10:39 Height 5 ft 8 in Weight 198 lb BMI 30.1 BP 130/80 Blood Pressure Location Lt brachial Position Sitting Pulse 90 Pulse Source Pulse Oximeter Temp 98.3 F Temp Source Oral Pulse Oximetry (%) 98 Intake Visit Reasons: EP-body fungus Intake Note: pt is here for fungal infection under breast, and grew to nipple and its blistering and suspects it may have moved to butt region Patient Tobacco Use Status: Former Tobacco user Allergies sulfamethoxazole [From BACTRIM] Adverse Reaction (Severe, Verified 10/04/24 10:45) NAUSEA & VOMITING amoxicillin [AMOXICILLIN] Adverse Reaction (Intermediate, Verified 10/04/24 10:45) NAUSEA & VOMITING, (per Pt, able to take) causes numbness in hands Do you need a note to return to daycare/school/sports/work: No HPI HPI Comments 2 History of Present Illness0 Details 39 y/o female patient who presents to [facility] walk [facility] clinic with very itchy rash under breasts and groin area Since August. She was seen here last year for similar rash and prescribed Clotrimazole. Reports that rash went away temporally but never resolved. She has been using Airdryer on cool setting to keep areas dry and clean. She has been using Pantyliners under breast to trap moustire with some relief. [facility] Medical History History of COVID-19 Impaired fasting glucose Decreased hearing of both ears [place] of toe Generalized anxiety disorder ADD (attention deficit disorder) Surgical History H/O cervical polypectomy Family History Maternal Grandfather Diabetes mellitus Sister Retinitis pigmentosa Other Retinitis Social History Housing: House Patient Tobacco Use Status: Former Tobacco user Cigarettes Per Day: 10 e-Cigarette/Vaping Use: Never Used service: No Current occupational status: employed Cognitive needs: No Hearing needs: No Vision needs: Yes Review of Systems Const All systems reviewed & are unremarkable except as noted in HPI and below Physical Exam Vital Signs: Last Vital Signs Temp 98.3 F 10/04/24 10:39 Pulse 90 10/04/24 10:39 BP 130/80 10/04/24 10:39 Pulse Ox 98 10/04/24 10:39 BMI result Body Mass Index 30.1 Const General: cooperative and no acute distress Orientation/consciousness: patient oriented x3 Skin Rashes: rashes noted Full body images: 2 1. Very mild redness, no visible lesions seen. Skin Scaly and dry. Mild skin irritation seen. 2. Very mild redness, no visible lesions seen. Skin Scaly and dry. Mild skin irritation seen. 3. Very mild redness, no visible lesions seen. Skin Scaly and dry. Mild skin irritation seen. 4. Very mild redness, no visible lesions seen. Skin Scaly and dry. Mild skin irritation seen. Neuro General: patient oriented x3, gait normal and moves all extremities Psych Speech and movement: Normal speech and movement present Assessment & Plan Assessment & Plan (1) Rash: Code(s): R21 - Rash and other nonspecific skin eruption Plan: Discuessed referral to Dermatology for proper diagnosis. Ordered a new cream with Antifungal/Steroid. Placed referral to Derm Orders: Referrals 2 Dermatology Referral R21 - Rash and other nonspecific skin eruption Medications: New 2 clotrimazole-betamethasone 1-0.05 % APPLY TWICE A DAY TO THE AFFECTED SKIN FOR 2 WEEKS ON AND 2 WEEKS OFF. 1 appl topical BID 45 grams 2RF 2 weeks R21 - Rash and other nonspecific skin eruption Coding Level of Care Code Est Pt Level 4 (63781) Diagnoses Rash R21 Time Spent (min) 20
--- OUTSIDE RECORDS SUMMARY | 2024-10-04 14:06 | XMS_ITS | Data Portability ---
Author Organization [facility], , [facility] Address [address] [place] [address] Care Team Providers Care Manager Export Name Role Phone BALAJI VALENTE Primary Care Provider Assessment Encounter Date Assessment Date Assessment LastModified by Organization Details LastModified Time 10/08/2017 10/08/2017 Hammertoe 4th and 5th toes left foot jerskine Not available 10/08/2017 09:16:46 03/09/2018 03/09/2018 Patient noticed a firm swelling in her tongue yesterday that was tender and seemed to increase in size. It does not interfere with her swallowing or breathing. She has no idea what started it. Objective-non- ill-appearing in no acute distress. Tongue appears basically normal but there is a punctate opening in the distal third of the tongue and a firmness and induration centrally in the tip of the tongue. Somewhat more on the right. No lymphadenopath y. Oropharynx is otherwise normal. Assessment-adv ised patient that I was not sure what was going on with her tongue. It almost like there is a small abscess, but there is no drainage and she is somewhat better this morning than last night. She is leaving town to visit her grandmother who is on hospice. I encouraged her to be seen by a dentist and possibly an oral surgeon. I believe she can try salt water gargles, and monitoring for worsening symptoms. An oral surgeon may be helpful in diagnosing this. She is comfortable monitoring symptoms for now. [email or web address] Not available 03/09/2018 07:25:02 Plan of Treatment Reminders Order Date Submit Date Provider Last Modified By Organization Details Last Modified Time Details Appointments None recorded. Lab CBC 2016 017 [facility], [address], [place], [address], 7 14:53:33 amylase, serum or plasma 2016 017 [facility], [address] [place] [address], [address], 7 16:31:54 lipase, serum or plasma 2016 017 [facility], [address] [place] [address], [address], 7 16:31:53 CMP, serum or plasma 2016 017 [facility], [address] [place] [address], [address], 7 16:31:53 mononucleos is, heterophile Ab, blood 2016 017 [facility], [address] [place] [address], [address], 7 09:43:[address] referral - 32 y.o. with growth (? cyst, ? dermatofibr rob) left lower leg that has grown in size and gets irritated with shaving. Referred for evaluation/ excision - you have seen her for this in the past several yrs ago 2017 018 [email or web address] Marlo Sequeira MD, [address] [place], [address], 8 12:00:07 Procedures None recorded. Surgeries None recorded. Imaging US, abdomen 2016 017 [facility] (Imaging), [address], [place], [address], 7 15:55:50 Medication Orders fluconazole 150 mg tablet 2017 018 [email or web address] [id number], [address], [address], 8 08:59:28 cephalexin 500 mg capsule 2017 018 bgreen [id number], [address] [place], [address], 8 09:15:46 Patient TargetsNo targets recorded. Patient Instructions Encounter Date Encounter Id Patient Instructions Last Modified By Organization Details Last Modified Time 10/08/2017 [id number] Patient to return if symptoms persist/recur. jerskine Not available 10/08/2017 09:17:05 03/02/2018 [id number] strep throat: care instructions [email or web address] Not available 03/02/2018 15:39:46 03/05/2018 [id number] Well Visit, Ages 18 to 65: Care Instructions [email or web address] Not available 03/05/2018 09:33:25 After a discussion of treatment options, which included consideration of best practices, patient preferences, and the patient? s individual lifestyle and treatment goals, as well as consideration and attempted mitigation of any barriers to meeting the patient? 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 with growth (? cyst, ? dermatofibroma) left lower leg that has grown in size and gets irritated with shaving. Referred for evaluation/excision - you have seen her for this in the past several yrs ago Referring Physician: Balaji Valente, Family Medicine, Encounter Date: 03/05/2018 Results Created Date Observation Date Name Description Value Unit Range Abnormal Flag Note LastModifiedBy Organization Detail LastModifiedTime 06/06/20 17 06/06/2017 rapid strep group A, throa t strep A POC Negati ve Not Available [address], [address], 06/06/2017 10:22:34 06/19/20 17 06/19/2017 CBC WBC 5.9 K/? ? ?L 4.0-10 .0 Not Available [address], [address], 06/19/2017 14:53:33 06/19/20 17 06/19/2017 CBC RBC 4.67 M/? ? ?L 3.93-5 .22 Not Available [address], [address], 06/19/2017 14:53:33 06/19/20 17 06/19/2017 CBC HGB 13.9 g/dL 11.2-1 5.7 Not Available [address], [address], 06/19/2017 14:53:33 06/19/20 17 06/19/2017 CBC HCT 42.6 % 34.1-4 4.9 Not Available [address], [address], 06/19/2017 14:53:33 06/19/20 17 06/19/2017 CBC MCV 91.2 ? ? ?L 79.4-9 4.8 Not Available [address], [address], 06/19/2017 14:53:33 06/19/20 17 06/19/2017 CBC MCH 29.8 pg 25.6-3 2.2 Not Available [address], [address], 06/19/2017 14:53:33 06/19/20 17 06/19/2017 CBC MCHC 32.6 g/dL 32.2-3 5.5 Not Available [address], [address], 06/19/2017 14:53:33 06/19/20 17 06/19/2017 CBC plt 309.0 K/? ? ?L 182.0- 369.0 Not Available [address], [address], 06/19/2017 14:53:33 06/19/20 17 06/19/2017 CBC MPV 10.5 9.4-12 .3 Not Available [address], [address], 06/19/2017 14:53:33 06/19/20 17 06/19/2017 CBC neut% 54.4 % 34.0-7 1.1 Not Available [address], [address], 06/19/2017 14:53:33 06/19/20 17 06/19/2017 CBC neut# 3.2 1.6-6. 1 Not Available [address], [address], 06/19/2017 14:53:33 06/19/20 17 06/19/2017 CBC lymph % 34.4 % 19.3-5 1.7 Not Available [address], [address], 06/19/2017 14:53:33 06/19/20 17 06/19/2017 CBC lymph # 2.0 K/? ? ?L 1.2-3. 7 Not Available [address], [address], 06/19/2017 14:53:33 06/19/20 17 06/19/2017 CBC mono% 8.9 % 4.7-12 .5 Not Available [address], [address], 06/19/2017 14:53:33 06/19/20 17 06/19/2017 CBC mono# 0.5 0.2-0. 6 Not Available [address], [address], 06/19/2017 14:53:33 06/19/20 17 06/19/2017 CBC eo% 2.0 % 0.7-5. 8 Not Available [address], [address], 06/19/2017 14:53:33 06/19/20 17 06/19/2017 CBC eo# 0.1 0.0-0. 4 Not Available [address], [address], 06/19/2017 14:53:33 06/19/20 17 06/19/2017 CBC baso% 0.3 % 0.1-1. 2 Not Available [address], [address], 06/19/2017 14:53:33 06/19/20 17 06/19/2017 CBC baso# 0.0 0.0-0. 1 Not Available [address], [address], 06/19/2017 14:53:33 06/19/20 17 06/19/2017 CBC RDW-CV 12.2 % 11.7-1 4.4 Not Available [address], [address], 06/19/2017 14:53:33 06/19/20 17 06/19/2017 CMP, serum or plasm a glucose 84 mg/dL 70-100 Not Available [address], [address], 06/19/2017 16:31:53 06/19/20 17 06/19/2017 CMP, serum or plasm a BUN 10 mg/dL 7-18 Not Available [address], [address], 06/19/2017 16:31:53 06/19/20 17 06/19/2017 CMP, serum or plasm a creatinine 0.7 mg/dL 0.8-1. 3 low Not Available [address], [address], 06/19/2017 16:31:53 06/19/20 17 06/19/2017 CMP, serum or plasm a B/C 14.3 ratio Not Available [address], [address], 06/19/2017 16:31:53 06/19/20 17 06/19/2017 CMP, serum or plasm a GFR -non 110.1 mL/mi n Recom sonia d GFR by the Natio nal Kidne y Found ation >60 mL/mi n/1.7 3m2 - Gail l <60 mL/mi n/1.7 3m2 - Chron ic Kidne y Disea se <15 mL/mi n/1.7 3m2 - Kidne y Failu re Not Available [address], [address], 06/19/2017 16:31:53 06/19/20 17 06/19/2017 CMP, serum or plasm a GFR - if 126.5 mL/mi n For Afric an Ameri can patie nts: Resul ts Multi plied by 1.21 Not Available [address], [address], 06/19/2017 16:31:53 06/19/20 17 06/19/2017 CMP, serum or plasm a sodium 142 mmol/ L 136-14 5 Not Available [address], [address], 06/19/2017 16:31:53 06/19/20 17 06/19/2017 CMP, serum or plasm a potassium 4.6 mmol/ L 3.5-5. 1 Not Available [address], [address], 06/19/2017 16:31:53 06/19/20 17 06/19/2017 CMP, serum or plasm a chloride 104 mmol/ L 96-107 Not Available [address], [address], 06/19/2017 16:31:53 06/19/20 17 06/19/2017 CMP, serum or plasm a anion gap 11.9 5.0-15 .0 Not Available [address], [address], 06/19/2017 16:31:53 06/19/20 17 06/19/2017 CMP, serum or plasm a CO2 26 mmol/ L 21-32 Not Available [address], [address], 06/19/2017 16:31:53 06/19/20 17 06/19/2017 CMP, serum or plasm a calcium 9.7 mg/dL 8.5-10 .3 Not Available [address], [address], 06/19/2017 16:31:53 06/19/20 17 06/19/2017 CMP, serum or plasm a total protein 7.7 g/dL 6.4-8. 2 Not Available [address], [address], 06/19/2017 16:31:53 06/19/20 17 06/19/2017 CMP, serum or plasm a albumin 4.3 g/dL 3.4-5. 0 Not Available [address], [address], 06/19/2017 16:31:53 06/19/20 17 06/19/2017 CMP, serum or plasm a globulin 3.4 g/dL Not Available [address], [address], 06/19/2017 16:31:53 06/19/20 17 06/19/2017 CMP, serum or plasm a A/G 1.3 ratio 0.8-2. 0 Not Available [address], [address], 06/19/2017 16:31:53 06/19/20 17 06/19/2017 CMP, serum or plasm a total bilirubin 0.50 mg/dL 0.00-1 .00 Not Available [address], [address], 06/19/2017 16:31:53 06/19/20 17 06/19/2017 CMP, serum or plasm a AST 19 U/L 15-37 Not Available [address], [address], 06/19/2017 16:31:53 06/19/20 17 06/19/2017 CMP, serum or plasm a ALT 40 U/L 30-65 Not Available [address], [address], 06/19/2017 16:31:53 06/19/20 17 06/19/2017 CMP, serum or plasm a alk. phos. 57 U/L 50-136 Not Available [address], [address], 06/19/2017 16:31:53 06/19/20 17 06/19/2017 lipas e, serum or plasm a lipase 106 U/L 73-393 Not Available [address], [address], 06/19/2017 16:31:53 06/19/20 17 06/19/2017 amyla se, serum or plasm a amylase 53 U/L 25-115 Not Available [address], [address], 06/19/2017 16:31:54 06/19/20 17 06/20/2017 monon ucleo sis, heter ophil e Ab, blood mono NEGATI VE negati ve Not Available [address], [address], 06/20/2017 09:43:27 03/02/20 18 03/02/2018 pocst pa strep A POC POSITI VE positive Not Available [address], [address], 03/02/2018 15:14:47 06/19/20 17 06/19/2017 US, abdom en OBSERV ATION: ABDOMI NAL ULTRAS OUND COMPLE TE Histor y: Right flank pain and nausea Compar wallace: None Findin gs: The liver, gallbl adder, and spleen are normal . The common duct is normal in calibe r. There is no eviden ce of intra or extrah epatic biliar y dilata tion. The pancre as as visual ized is normal . The aorta and inferi or vena cava are normal . The bilate ral kidney s are unrema rkable withou t eviden ce of hydron ephros is or calcul us. No abnorm al masses or fluid collec tions are presen t. IMPRES KATYA: Normal POS: VMG Electr onical ly signed Readin g Physic jazlyn: [facility] [address] [place], [address], 06/23/2017 08:15:22 Result Notes None recorded. Problems Name Problem SNOMED Code Status Onset Date Resolution Date Notes Provider Name and Address Organization Details Recorded Time Recurrent depression 076057680 Active 2016 Juliane Rg NP [address] [place] [address], [place], [address], [facility] 7 16:20:47 Chronic anxiety 832794582 Active 2016 Juliane Rg NP [address] [place] [address], [place], [address], [facility] 7 16:21:02 Attention deficit hyperactivi ty disorder, predominant ly inattentive type 30512023 Active 2016 Juliane Rg NP [address] [place] [address] [place], [address], [facility] 7 16:21:23 Knee pain Completed 200007/28/2013 Mihai Wynn DPM [address] [place] [address] [place], [address], [facility] 6 11:55:09 Notes:mono 2007//ADD Problem Notes None recorded. Procedures Surgical History Date Name Laterality Status Provider Name and Address Organization Details Recorded Time 8 POC Strep Testing completed Radhadavis Mancilla MA [facility] 03/02/2018 15:06:50 7 Smoking cessation counseling completed Radhadavis Mancilla MA [facility] 12/13/2016 16:05:17 7 Carbon Monoxide Testing completed Radhadavis Mancilla [facility] 12/13/2016 16:05:38 Imaging Results Imaging Date Name Status LastModified by Organiz ation Details LastModified Time 06/19/2017 US, abdomen completed [facility] (Imaging) [address] [place], [address], 06/23/2017 08:15:22 Procedure Notes None recorded. Medical Equipment None Reported. Allergies Allergen ID Allergen Name Allergen Category Reaction Reaction Severity Criticality Documentation Date Start Date Code Code System Note Provider Name and Address Organization Details Recorded Time 428302 Bactrim medicatio n other Not available Not available 01/16/2016 65474 9 RxNorm Makes her feel ill [facility] 6 11:06:08 Medications Name Sig Start Date Stop Date Status Note LastModified by Organization Details LastModified Time fluconazo le 150 mg tablet take 1 tablet once, and repeat dose in 3-5 days 2017 active also on probioti c while on antibiot ics Not Available Not Available Not Available dextroamp hetamine- amphetami ne 10 mg tablet 12/13 completed Not Available Not Available Not Available Wellbutri n SR 150 mg tablet, 12 hr sustained -release Take 1 tablet every day by oral route. 03/[address] Hakan castañeda Not Available Not Available Not Available acetamino phen 300 mg-codein e 30 mg tablet active Not Available Not Available Not Available cephalexi n 500 mg capsule Take 1 capsule 3 times a day by oral route for 10 days. 03/05 completed Not Available Not Available Not Available dextroamp hetamine- amphetami ne ER 10 mg 24hr capsule,e xtend release TAKE ONE CAPSULE BY MOUTH EVERY MORNING 12/13 completed Not Available Not Available Not Available Wellbutri n 100 mg tablet Take 1 tablet every day by oral route. 06/[address] Hakan castañeda Not Available Not Available Not Available Wellbutri n XL 300 mg 24 hr tablet, extended release Take 1 tablet every day by oral route. active Not Available Not Available No t Available lorazepam 0.5 mg po QD PRN active rx by Dr. Hakan castañeda Not Available Not Available Not Available Adderall XR 25 mg po QD active rx by Dr. Hakan Escobar n Not Available Not Available Not Available Vitals Date Recorded Body height Provider Name an d Address Organization Details Last Updated DateTime 06/19/2017 171.45 cm Ena Delcid [place] [facility] 06/19/2017 09:55:12 Date Recorded Body mass index (BMI) Body weight Provider Name and Address Organization Details Last Updated DateTime 06/19/2017 24.1 kg/m2 38960.41 dominic Delcid MA [facility] 06/19/2017 09:56:44 Date Recorded Body temperature Provider Name a nd Address Organization Details Last Updated DateTime 06/19/2017 98.5 [degF] Ena Delcid MA [facility] 06/19/2017 09:57:00 Date Recorded Body height Provider Name an d Address Organization Details Last Updated DateTime 10/08/2017 171.45 cm Idania Chaudhary [facility] 10/08/2017 09:04:26 Date Recorded Body height Provider Name an d Address Organization Details Last Updated DateTime 03/02/2018 171.45 cm Radha Mancilla [facility] 03/02/2018 14:53:18 Date Recorded Body mass index (BMI) Body weight Provider Name and Address Organization Details Last Updated DateTime 03/02/2018 23 kg/m2 33341.26 dominic Radha MancillaHANNAH [facility] 03/02/2018 14:53:56 Date Recorded Body temperature Provider Name a nd Address Organization Details Last Updated DateTime 03/02/2018 98.6 [degF] Radhadavis Mancilla MA [facility] 03/02/2018 14:57:28 Date Recorded Body height Provider Name an d Address Organization Details Last Updated DateTime 03/05/2018 173.36 cm Mi Mello MA [facility] 03/05/2018 08:57:52 Date Recorded Body mass index (BMI) Provider Name and Address Organization Details Last Updated DateTime 03/05/2018 22.5 kg/m2 Mi Mello MA [facility] 03/05/2018 08:57:52 Date Recorded Body weight Provider Name an d Address Organization Details Last Updated DateTime 03/05/2018 25000.36 dominic Mi Mello [facility] 03/05/2018 08:57:45 Date Recorded Body height Provider Name an d Address Organization Details Last Updated DateTime 03/09/2018 173.36 cm Emilia ledezma [facility] 03/09/2018 07:12:33 Date Recorded Body mass index (BMI) Body weight Provider Name and Address Organization Details Last Updated DateTime 03/09/2018 22.2 kg/m2 45327.36 g Emilia Lloyd MA [facility] 03/09/2018 07:13:49 Date Recorded Systolic blood pressure Diastolic blood pressure Provider Name and Address Organization Details Last Updated DateTime 06/19/2017 104 mm[Hg] 58 mm[Hg] Ena Delcid [facility] 06/19/2017 09:56:52 Date Recorded Systolic blood pressure Diastolic blood pressure Provider Name and Address Organization Details Last Updated DateTime 10/08/2017 100 mm[Hg] 60 mm[Hg] Idania Chaudhary [facility] 10/08/2017 09:06:50 Date Recorded Systolic blood pressure Diastolic blood pressure Provider Name and Address Organization Details Last Updated DateTime 03/02/2018 98 mm[Hg] 52 mm[Hg] Radha Mancilla [facility] 03/02/2018 14:56:37 Date Recorded Systolic blood pressure Diastolic blood pressure Provider Name and Address Organization Details Last Updated DateTime 03/05/2018 106 mm[Hg] 64 mm[Hg] Mi Mello [facility] 03/05/2018 09:04:48 Date Recorded Systolic blood pressure Diastolic blood pressure Provider Name and Address Organization Details Last Updated DateTime 03/09/2018 100 mm[Hg] 60 mm[Hg] Emilia Lloyd MA [facility] 03/09/2018 07:16:21 Social History Question Answer Notes LastModified by Organizat ion Details LastModified Time Tobacco Smoking Status Former Smoker quit 02/27/18- was smoking 1/2ppd for 10 yrs. [facility] 01/16/2016 11:06:08 What Is Your Level Of Alcohol Consumption? Occasional Information not available 12/13/2016 What Is Your Level Of Caffeine Consumption? Moderate 1-2 Cups Coffee A Day. 03/05/18 Pt Is Trying To Cut Out Caffine/johanny Information not available 03/05/2018 How Much Tobacco Do You Chew? None Information not available 06/12/2017 What Type Of Diet Are You Following? REGULAR Tries To Eat Clean Information not available 03/05/2018 Which Illicit Or Recreational Drugs Have You Used? 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 1-5yearssincel ariana Information not available 03/05/2018 How Many Days In The Past Year Have You Had A Heavy Drinking Consumption (4+ Female, 5+ Male)? 3 Information not available 03/05/2018 Are There Any Guns Present In Your Home? No Information not available 12/13/2016 Live Alone Or With Others? With Others Mom And Step-fathe r Information not available 12/13/2016 Does The Patient Have Difficulty Speaking Burundian? No Information not available 12/13/2016 Does The Patient Have Difficulty Reading Burundian? No Information not available 12/13/2016 Patient Has Health Care Proxy Signed And In Chart Yes Phil Koo Information not available 12/13/2016 Marital Status Single Informatio n not available 12/13/2016 Mosquito Repellent Used Routinely Yes Information not available 12/13/2016 What Was The Date Of Your Most Recent Tobacco Screening? 03/05/2018 Information not available 03/31/2019 How Many Children Do You Have? 0 Information not available 12/13/2016 Seat Belts Used Routinely Yes Information not available 12/13/2016 Are You Sexually Active? No Information not available 12/13/2016 Smoke Alarm In Home Yes Information not available 12/13/2016 What Types Of Sporting Activities Do You Participate In? None Information not available 03/05/2018 General Stress Level High Information not available 12/13/2016 Do You Use Sunscreen Routinely? Yes Information not available 12/13/2016 Sex: Unknown Functional Status None recorded. Mental Status None recorded. Family History Relationship Description Onset Age of this Age Resolved Age Notes LastModified by Organization Details LastModified Time Maternal Uncle Diabetes mellitus [email or web address] Not available 2016 16:19:35 Notes:Unsure of cancer with grandmother. Mother with situational depression. No early CAD. Medical History No medical history recorded. Gynecological History Statement/Question Response Menses Monthly Y History of Abnormal Pap Y Current Control Method IUD Date of LMP 03/05/2018 Obstetrics History GPAL:G 0 P 0 0 0 0 Immunizations Vaccine Type Date Status Note Provider Willy muñoz and Address Organization Details Recorded Time Tdap 12/09/2011 completed HANNAH Miller [facility] 03/21/2017 10:58:29 influenza, unspecified formulation 05/15/2016 completed HANNAH Miller [facility] 03/21/2017 10:59:29 Past Encounters Encounter ID Performer Location Encounter Start Date Encounter Closed Date Diagnosis/Indication Diagnosis SNOMED-CT Code Diagnosis ICD10 Code Diagnosis Note [id number] Physical Therapy, [address] [address] 01/22/2001 15:00:00 09/28/2008 02:02:29 [id number] Mihai Wynn DPM Podiatry, [facility] [address] [place] [address] 01/16/2016 10:48:46 01/16/2016 11:44:36 Hammer toe 988825767 M20.42 [id number] Juliane Rg NP , [facility], OFFICE [address] [place] [address] 12/13/2016 15:30:56 12/17/2016 10:06:19 Adult health examination 402090730 Z00.00 31 year old here for routine PHA. QM up to date. See Risk Assessment and Lifestyle Change Counseling section above Counseling 569382912 Z71 .9 Cigarette smoker 0848956 7 F17.210 Pt not interested in meds at this time. Did give her a handout on smoking cessation classes. Tobacco user 967509725 Z 72.0 Decreased hearing 950408 001 H91.90 Pt with abnormal audiogram but she would like to us to monitor it and not be referred for formal audiology referral. Attention deficit hyperactivity disorder, predominantly inattentive type 57570578 F90.0 stable on meds which are prescribed by her psychiatri . Recurrent depression 191 273450 F33.9 Mostly situationa l, but she reports she is stable on meds which are prescribed by her psychiatri . Chronic anxiety 54745498 9 F41.9 stable on meds which are prescribed by her psychiatri . [id number] Mihai Wynn DPM Podiatry, [facility] [address] [place] [address] 01/09/2017 11:15:25 01/17/2017 13:52:52 Metatarsalgia 52834641 M77.42 Pronation of foot 875028 03 M21.6X9 [id number] Yaneth Royal NP , [facility], [address] [place] [address] 03/21/2017 13:25:16 03/21/2017 14:04:44 Acute upper respiratory infection 47908298 J06.9 sxcare reviewed, rtc prn [id number] Miles Mccullough MD , [facility], [address] 06/06/2017 09:41:22 06/06/2017 10:33:14 Has a sore throat 188686233 J02.9 [id number] Balaji Valente NP , [facility], [address] [address] 06/12/2017 09:30:48 06/12/2017 10:03:04 Common cold 31542177 J00 Sx c/w viral URI. Enc. adequate fluids/res t and otc analgesics prn. F/u for worsening sx (i.e. fever, chest pain, dyspnea). [id number] Mathieu Shaver MD , [facility], [address] [place] [address] 06/19/2017 09:50:36 06/19/2017 10:23:41 Abdominal pain 50060650 R10.9 r/o GB and pancreatic disease. this could be all a viral syndrome. doubt mono [id number] Mihai Wynn DPM Podiatry, [facility] [address] [place] [address] 10/08/2017 08:59:01 10/10/2017 12:55:46 Hammer toe 843795906 M20.42 [id number] Latasha riddle PA-C , [facility], [address] [place] [address] 03/02/2018 14:41:17 03/02/2018 15:37:27 Streptococcal sore throat 13417386 J02.0 -recurrent vs persisent GAS infection- exam normal, but still + sore throat with + Rapid strep will re-treat, with cephalospo rinenc compliance take probioticg ave fluconazol e due to hx of yeast vaginitis on ABX last course. [id number] Balaji Valente NP , [facility], [address] [place] [address] 03/05/2018 08:51:39 03/05/2018 09:36:40 Adult health examination [id number] Z00.00 see Risk Assessment and Lifestyle Change Counseling section above - will call to get temporary receptionist notes and last pap but pt believes she is due and will schedule for sometime in the next few weeks (Has menses and deferred today) Counseling [id number] Z71 .9 Depression screening [id number] Z13.89 depression screening tool administer ed, entered into emr, scored and discussed, time greater than 7.5 minutes Skin lesion [id number] L98 .9 This was evaluated in past by Dr. Sequeira who offered to remove it but felt it was benign. Pt would like this excised now. Referred back to derm. Streptococ robb sore throat [id number] J02.0 Recent recurrent strep infection. Now on keflex for the past 3-4 days. Enc. replace toothbrush , finish course of antibiotic s and f/u if sx recur. [id number] Walter Nolasco MD , [facility], [address] [place] [address] 03/09/2018 07:07:35 03/10/2018 10:23:08 Acute glossitis [id number] K14.0 Health Concerns Section Related Observation LastModified by Organization Detai ls LastModified Time None Recorded Concern Status LastModified by Organization Details LastModified Time None Recorded Advance Directives Directive None Recorded Payers Encounter Date Sequence Insurance Name Policy Number Policy Perez Covered Member ID Perez Member ID Guarantor Name 06/19/2017 1 [place] [facility] Aziza Miner [id number] Aziza Miner 10/08/2017 1 [place] [facility] Aziza Miner [id number] Aziza Miner 03/02/2018 1 [place] PRIOR TO 2022 - [facility] (MEDICAID) Aziza Miner [id number] Aziza Miner 03/05/2018 1 [place]IOR [place] 2022 - [facility] (MEDICAID) Aziza Miner [id number] Aziza Miner 03/09/2018 1 [place]IOR [place] 2022 - [facility] (MEDICAID) Aziza Miner [id number] Aziza Muñoz Kristofer Notes Date Note Type Note Provider Name and Address Organization Details Recorded Time 06/19/2017 text/html had mono 10 yrs ago. has similar sx now- fatigue. right side feels swollen, nausea at end of day or after activity. no s.t., no swollen glands., no fever, no tick bites. no rashes. appetite is fine.some congestion on and off. sick this time for 2 weeks initially s.t.- none now.- had drank five drinks in several hours- felt wiped out. then I noticed right side hurt upper abd. no jaundice. no IV drug hx Mathieu Shaver MD [address] [place] [address], [phone], [facility] 06/19/2017 10:37:04 10/08/2017 text/html Patient presents to the office complaining of pain 4th toe of her left foot. Patient states discomfort has been increasing over the past couple of months especially when walking in closed shoe. Patient without complaints of swelling or discoloration. Mihai Wynn DPM [address] [place] [address], [phone], [facility] 10/08/2017 09:17:27 03/02/2018 text/html VMG URI Flu like SymptomsReported bypatient.Duration:sym ptoms lasting over 2 weeks Severity:moderate; Symptoms are persisting Associated Symptoms:No fever/chills; No fatigue or malaise; No headache; No significant muscle aches; No sweats; No congestion; No purulent nasal discharge; No sinus pressure; No cough; No sputum production; No wheezing; No shortness of breath; No ear pressure or fullness; No earache;Sore throat;Difficulty swallowing Context:No sick contacts; Non-smoker Modifying factors:No relief with OTC medication Still having some mild sore throat. Seen for strep throat 2 wks ago at [facility] (txd with Amox 875 mg bid and completed dose on ).Able to swallow, but hurts. No fever, chills. Latasha Baum PA-C [address] [place] [address], [phone], [facility] 03/02/2018 15:45:56 03/05/2018 text/html Physical Exam/FemaleReported bypatient.PHAPatient is here for a Wellness Visit. She describes her health status as fair. Patient's health is better than last year.Risk Assessment and Lifestyle Change Counseling 18-50Reported bypatient.Coronary Artery Disease Risk Assesment:Family History of Coronary Artery Disease(MGM); No personal history of diabetes; No history of peripheral vascular disease, AAA, or carotid disease; No personal history of coronary artery disease; diabetes runs in the family Breast Cancer Risk Assessment:No family history of breast cancer; No history of breast cancer or dcis; cancer runs family - dad's side - PGM and pat uncle - not sure what type of cancer - no one else Lung Cancer Risk Assessment:Has used cigarettes less than 30 pack years Cognitive/Behavioral Risk Assessment:Personal history of mental illness;Family history of mental illness; all situational Safety Risk Assessment:No evidence of abuse/neglect; Do you feel safe in your current relationship?YES; Have you ever been a victim of physical/emotional/sex ual abuse?NO Diet:Counseled about appropriate portion size; Counseled about eating a diet low in trans and saturated fats and high in fiber, fruits and vegetables; Discussed the value of a Mediterranean diet, and eating more fruits and vegetables; Avoids sugar - eats clean Exercise counseling:Discussed the importance of daily physical activity; rare exercise Safety:Counseled about protecting skin from the sun and lowering the risk of skin cancer; Counseled about avoiding excessive and unsafe alcohol intake; Counseled about use of seat belts Family Planning:Using control IUD; inserted 09/2015 approxa/vmg-Smoking CessationReported bypatient.Readiness to quit smokingPatient is considering stopping smoking in the next 6 months. Duration:Currently smoking (5-10 cigs per day) Barriers to Quittingabsence of motivation; Side effects from stop smoking medicationsNotes:Quit 1 yr ago! Still cravings but doing ok Lump left lower leg - over a yr - gets irritated with shaving and wants it removed Balaji Valente NP [address] [facility], [place], [phone], [facility] - [facility] 03/06/2018 07:51:34 OBGyn Episode No OBEpisode recorded.
== END 2024-10-04 11:30 | disposition home or self-care (01) ==
PROVIDERS: PCP Internal Medicine; Visit Provider Nurse Practitioner Family
DX: R21 Rash and other nonspecific skin eruption (principal)

== ENCOUNTER → 2024-10-04 09:39 | Outpatient (BNVA) | payer OTHER, SELFPAY | PROVIDERS: PCP Internal Medicine | DX: R21 Rash and other nonspecific skin eruption (principal) | CPT/HCPCS: 99212 ==

== ENCOUNTER 2024-10-18 10:29 | Outpatient (REF) | payer OTHER, SELFPAY | END 2024-10-18 10:30 | disposition home or self-care (01) | LOC: HO.US 10:29 | PROVIDERS: PCP Internal Medicine; Visit Provider Nurse Practitioner Family | DX: D17.9 Benign lipomatous neoplasm, unspecified (principal) | CPT/HCPCS: 76770 ==

== ENCOUNTER → 2024-10-18 10:31 | Outpatient (BNV) | payer OTHER, SELFPAY | PROVIDERS: PCP Internal Medicine; Visit Provider Radiology Diagnostic Radiology | DX: D17.9 Benign lipomatous neoplasm, unspecified (principal) | CPT/HCPCS: 76770 ==

== ENCOUNTER 2024-10-20 07:29 | Outpatient (AMB) | payer OTHER, SELFPAY ==
--- NOTE | 2024-10-20 07:29 | A.OFFVIS_ITS ---
Intake Visit Reasons: 6m/U/S(pending 10/18) Intake Note: Patient presents today for tele- visit follow up on: right angiomyolipoma kidney and ultrasound results Imaging Completed: 10/18/24 Urology Medications: none Blood Thinner: none Dominatrix Required: No Allergies sulfamethoxazole [From BACTRIM] Adverse Reaction (Severe, Verified 10/20/24 10:05) NAUSEA & VOMITING amoxicillin [AMOXICILLIN] Adverse Reaction (Intermediate, Verified 10/20/24 10:05) NAUSEA & VOMITING, (per Pt, able to take) causes numbness in hands Medication List - Last Reconciled 10/20/24 by FRANKY Gonzalez- cholecalciferol (vitamin D3) 1,250 mcg PO QWEEK 3 months clotrimazole-betamethasone 1-0.05 % 1 appl topical BID 2 weeks dextroamphetamine-amphetamine 30 mg ER PO DAILY levonorgestrel (Mirena) intrauterine lorazepam 0.5 mg PO DAILY PRN sertraline mg PO HPI Comments Details: Azzia is a very pleasant 39-year-old female patient of Dr. Garcia. She has a PMH of glucosuria, sinus tachycardia, intermittent palpitations, decreased hearing of both ears, generalized anxiety disorder, and attention deficit disorder. She is being followed up on today via video telehealth for her angiolipoma. In discussion with the patient today she reports to be doing and feeling well. Recent renal imaging results reviewed with the patient today. Bilateral kidneys are normal in size and echotexture. No hydronephrosis or renal calculi noted bilaterally. 5 mm echogenic lesion mid pole consistent with angiolipoma which appears stable when compared to previous imaging. She does continue to report episodes of abdominal pain. She otherwise denies any bothersome urinary issues. She denies urinary urgency, urinary frequency, incontinence, nocturia, hematuria, dysuria, foul smelling urine, changes to urinary stream, flank pain, fever, and or chills. She is happy with her current voiding parameters. We discussed following up with PCP and or gastroenterology regarding abdominal pain she is experiencing. She otherwise offers no other issues or concerns at this time. [facility] Medical History History of COVID-19 Impaired fasting glucose Decreased hearing of both ears [employer] of toe Generalized anxiety disorder ADD (attention deficit disorder) Surgical History H/O cervical polypectomy Family History Maternal Grandfather Diabetes mellitus Sister Retinitis pigmentosa Other Retinitis Social History Housing: House Patient Tobacco Use Status: Former Tobacco user Cigarettes Per Day: 10 e-Cigarette/Vaping Use: Never Used service: No Current occupational status: employed Cognitive needs: No Hearing needs: No Vision needs: Yes Review of Systems Const Reports as per HPI Eyes Reports no additional complaints ENT Reports as per HPI Card Reports as per HPI Resp Reports no additional complaints GI Reports no additional complaints Reports as per HPI Musc Reports as per HPI Neuro Reports no additional complaints Psych Reports as per HPI Endo Reports as per HPI Johnathon/Lymph Reports no additional complaints Aller/Immun Reports no additional complaints Physical Exam Const General: cooperative, healthy appearing, comfortable, no acute distress, well developed, alert and awake Orientation/consciousness: patient oriented x3 Resp Effort & Inspection: normal respiratory effort and able to speak in complete sentences Neuro General: patient oriented x3 Psych Appearance: grossly normal Speech and movement: Clear speech present Affect: normal affect Attitude: cooperative Thought process: Normal thought process present Thought content: Normal thought content present Insight: Fair insight present (Psych) Judgement: Fair judgement present (Psych) Telehealth Telehealth Telehealth Platform: [facility] Location of provider rendering services: practice address Location of patient: address on file Patient Identification confirmed using: Name, : Yes Telehealth method: video Patient verbally consented to treatment: Yes Patient verbally consented to billing insurance company: Yes Patient informed of any privacy concerns related to visit: Yes Minutes spent on Phone/Video with Pt.: 15 Results Reviewed Results Reviewed: Date of Service: 10/18/24 US retroperitoneum with color Doppler Findings: Right kidney normal size and echotexture, 13.2 cm length. No hydronephrosis. Normal color flow. No nephrolithiasis. 5 x 5 x 4 mm echogenic lesion midpole most consistent with an angiomyolipoma previously measuring 5 x 4 x 4 mm Left kidney normal size and echotexture, 12.5 cm in length. No hydronephrosis. Normal color flow. No nephrolithiasis or renal masses. Urinary bladder is unremarkable. Prevoid volume 451.0 mL. Postvoid volume 1.1 mL. Ureteral jets are visualized bilaterally Impression: 1. Relatively little change in the probable angiomyolipoma midpole right kidney 2. Normal sonographic evaluation left kidney 3. Normal bladder Assessment & Plan Assessment & Plan (1) Angiolipoma: Code(s): D17.9 - Benign lipomatous neoplasm, unspecified Category: Medical Plan Recent renal imaging results reviewed with the patient today; as noted above. Patient currently denies any bothersome urinary issues. She reports be happy with current voiding parameters. Discussed continuing to follow-up with PCP and or gastroenterology for abdominal pain she continues to experience. Will continue with surveillance monitoring Will obtain renal ultrasound in 1 year. Follow-up in 1 year with imaging to be completed prior; or sooner with any issues, concerns, and or questions. Orders: Orders US renal BI 1 Year N20.0 - Calculus of kidney Patient Instructions: The patient had an opportunity to ask questions regarding the treatment plan. All questions were answered. Physical exam, labs, and imaging were discussed and reviewed in detail. As well as risks, benefits, and discussion of treatment choices. No major barriers to understanding were identified. The patient expressed understanding and agreement with the above treatment plan. The patient was made aware they should contact our office by phone for worsening of their current condition, the appearance of new symptoms, or with any questions or concerns. Compliance is encouraged with any medications and follow up testing that is ordered. It is a privilege to be allowed the opportunity to participate in? your urological care.? Again, if you have any questions or concerns If you have any questions or concerns please do not hesitate to contact me. The office is [phone]. This note is constructed using voice recognition software. While every effort has been made to ensure accuracy ditch rider errors may have been included. Yours sincerely, Minnie Kohler, [employer] Coding Level of Care Code Tele Est Pt Level 3 (51521) Diagnoses Angiolipoma D17.9
== END 2024-10-20 09:00 | disposition home or self-care (01) ==
LOC: HO.HUSH 07:29
PROVIDERS: PCP Internal Medicine; Visit Provider Nurse Practitioner Family
DX: D17.9 Benign lipomatous neoplasm, unspecified (principal)
CPT/HCPCS: 99213

== ENCOUNTER → 2024-10-20 07:29 | Outpatient (BNVA) | payer OTHER, SELFPAY | PROVIDERS: PCP Internal Medicine; Visit Provider Nurse Practitioner Family ==

== ENCOUNTER 2024-11-01 10:44 | Outpatient (AMB) | payer OTHER, SELFPAY ==
--- NOTE | 2024-11-01 11:14 | A.OFFPC_ITS ---
Vital Signs 11/01/24 11:17 Height 5 ft 8 in Weight 196 lb BMI 29.8 BP 106/70 Blood Pressure Location Lt brachial Position Sitting Pulse 73 Pulse Source Pulse Oximeter Temp 97.8 F Temp Source Oral Pulse Oximetry (%) 98 Oxygen Delivery Method Room Air Intake Visit Reasons: ffup walk-in Intake Note: Pt is here today f/u walkin regarding fungus under bilateral breast Allergies sulfamethoxazole [From BACTRIM] Adverse Reaction (Severe, Verified 11/01/24 11:21) NAUSEA & VOMITING amoxicillin [AMOXICILLIN] Adverse Reaction (Intermediate, Verified 11/01/24 11:21) NAUSEA & VOMITING, (per Pt, able to take) causes numbness in hands Medication List - Last Reconciled 11/01/24 by Roma Garcia MD cholecalciferol (vitamin D3) 1,250 mcg PO QWEEK 3 months clotrimazole-betamethasone 1-0.05 % 1 appl topical BID 2 weeks dextroamphetamine-amphetamine 30 mg ER PO DAILY levonorgestrel (Mirena) intrauterine lorazepam 0.5 mg PO DAILY PRN sertraline mg PO Tobacco use date assessed: 11/01/24 Dental Screening Dental Screen Date: 11/01/24 Did you have a dental visit in the last 12 months?: Yes Did you have a dental problem in the last 6 months where you did not have access to dental care?: Yes Was dental information given to patient?: Patient has dentist HPI ffup walk-in HPI Details - The patient is a 39-year-old female pr esenting for follow-up regarding an itchy and malodorous rash under the breasts, recently seen at the walk-in clinic and treated for possible yeast infection.. This has been persistent and was resistant to prior antifungal treatment. - The patient describes a vague abdomina l pain persisting without a clear association with bowel regularities. The pain seemed spasmodic, leading to prior muscle spasm considerations. - She has history of pustular/cystic acn e and was previously treated with Doxycycline with good results, requests to be placed back on doxycycline. - Requires ongoing management for body w eight and gallstones identified historically, showing some symptoms like nausea believed to be due to overeating or acid reflux. [facility] Medical History (Updated 11/07/24 @ 17:07 by Roma Garcia MD) Generalized anxiety disorder ADD (attention deficit disorder) Erythema intertrigo History of COVID-19 Impaired fasting glucose Decreased hearing of both ears [place] of toe Surgical History H/O cervical polypectomy Family History Maternal Grandfather Diabetes mellitus Sister Retinitis pigmentosa Other Retinitis Social History Housing: House Patient Tobacco Use Status: Former Tobacco user Cigarettes Per Day: 10 e-Cigarette/Vaping Use: Never Used service: No Current occupational status: employed Cognitive needs: No Hearing needs: No Vision needs: Yes Questionnaire PHQ-9 Over the last 2 weeks, how often have you been bothered by any of the following problems? 1. Little interest or pleasure in doing things: not at all 2. Feeling down, depressed, or hopeless: not at all 3. Trouble falling or staying asleep, or sleeping too much: several days 4. Feeling tired or having little energy: several days 5. Poor appetite or overeating: several days 6. Feeling bad about yourself - or that you are a failure or have let yourself or your family down: several days 7. Trouble concentrating on things, such as reading the newspaper or watching television: several days 8. Moving or speaking so slowly that other people could have noticed. Or the opposite - being so fidgety or restless that you have been moving around a lot more than usual: not at all 9. Thoughts that you would be better off or of hurting yourself in some way: not at all Total score: 5 Depression Screening Interpretation: Negative Depression Screening Done: Yes 85535 - PHQ-9 Billing: Yes Source: Developed by Drs. Samuel Lebron, Leia Arambula, Zac Feldman and colleagues, with an educational carlin from [employer]. Thrive Questionnaire Date Thrive assessed: 11/01/24 I am a: Patient What is your living situation today?: I choose not to answer this question Within the past 12 months, did the food you bought not last and you didn't have the money to get more?: I choose not to answer this question Within the past 12 months, did you worry whether your food would run out before you got money to buy more?: I choose not to answer this question Do you have trouble paying for medicines?: I choose not to answer this question Do you have trouble getting transportation to medical appointments?: I choose not to answer this question Do you have trouble paying your heating and electricity bill?: I choose not to answer this question Do you have trouble taking care of your child, family member or friend?: I choose not to answer this question Do you have trouble with day-to-day activities such as bathing, preparing meals, shopping, managing finances, etc.?: I choose not to answer this question Are you currently unemployed and looking for a job?: I choose not to answer this question Are you interested in more education?: I choose not to answer this question Please select the resources that you would like help with: None Currently or been in a relationship where the following occur: No concerns reported THRIVE Score: 0 AUDIT C Alcohol Use Questionnaire (AUDIT-C) 1. How often do you have a drink containing alcohol?: Monthly or less 2. How many drinks containing alcohol do you have on a typical day when you are drinking?: 1 or 2 3. How often do you have six or more drinks on one occasion?: Less than monthly Total Score: 2 JOVITA-7 AMB Questionnaire JOVITA-7 Date JOVITA - 7 assessed: 11/01/24 Feeling nervous, anxious, or on edge: 1 = Several days Not being able to stop or control worryin = Several days Worrying too much about different things: 1 = Several days Trouble relaxin = Several days Being so restless that it is hard to sit still: 1 = Several days Becoming easily annoyed or irritable: 1 = Several days Feeling afraid as if something awful might happen: 1 = Several days Total JOVITA-7 score (0-4 normal; 5-9 mild; 10-14 moderate; 15-21 severe): 7 Source: Developed by Drs. Samuel Lebron, Leia Arambula, Zac Feldman and colleagues, with an educational carlin from [employer] JOVITA-7 Assessment Billing JOVITA-7 Assessment Tool: JOVITA-7 Assessment 01359 (Followed by Hakan Carrillo) Review of Systems Const Reports as per HPI Eyes Reports no additional complaints ENT Reports no additional complaints Card Denies chest pain, Denies rapid heart rate and Denies irregular heart rhythm Resp Reports no additional complaints GI Reports no additional complaints Reports as per [facility] Musc Reports as per [facility] Skin/Breast Reports as per [facility] Neuro Reports no additional complaints Psych Reports as per [facility] Endo Reports as per [facility] Johnathon/Lymph Reports no additional complaints Aller/Immun Reports no additional complaints Physical exam (Primary Care) Vital Signs: Last Vital Signs Temp 97.8 F 11/01/24 11:17 Pulse 73 11/01/24 11:17 BP 106/70 11/01/24 11:17 Pulse Ox 98 11/01/24 11:17 Oxygen Delivery Method Room Air 11/01/24 11:17 BMI result Body Mass Index 29.8 Tobacco/Smoking Status: Tobacco use Status Tobacco use date assessed 11/01/24 11/01/24 11:16 Patient Tobacco Use Status Former Tobacco user 11/01/24 11:16 e-Cigarette/Vaping Use Never Used 11/01/24 11:16 PHQ-9: PHQ-9 Score PHQ-9: Total score 6 11/06/24 01:21 Depression Screening Interpretation: Negative Thrive Assessment: Date of Thrive Assessment Date Thrive assessed 11/01/24 11/01/24 11:19 Currently or been in a relationship where the following occur: No concerns reported Const Other: Alert oriented x3, no acute distress noted, ambulatory with normal gait Orientation/consciousness: patient oriented x3 HENMA Mouth: Normal oral and palatal mucosa present, oropharynx normal and moist mucous membranes Eyes General: appearance normal, both eyes and all related structures Neck Neck: Yes full ROM, Yes no lymphadenopathy and Yes supple Chest Other: Mild erythema under both breasts Breast/axilla palpation: normal palpation of the breasts Resp Auscultation: clear to auscultation bilaterally Cardio Other: S1-S2 present tachycardic GI Auscultation: normal bowel sounds General: Yes no CVA tenderness Back/Spine/Pelvis Back: no CVA tenderness and No back tenderness Skin Other: Raised papular lesions on chin, lower half of face Neuro General: patient oriented x3, gait normal, tone normal, moves all extremities, Normal light touch and pain sensation, no focal motor deficits and CN's II-XI intact bilaterally Extrem General: Yes full ROM, Yes no joint enlargement, Yes no clubbing, cyanosis or edema and Yes no pedal edema Psych Appearance: grossly normal and well kempt Mental Status: mental status grossly normal Speech and movement: Normal speech and movement present Affect: normal affect Attitude: cooperative Thought process: Normal thought process present Thought content: Normal thought content present Results Reviewed Results Reviewed: Name: Aziza Miner Age/Sex: 39/F : 1985 Unit#: [id number] Attend Dr: Roma Garcia MD Re08/16/24 Status: DEP REF Location: [facility] Disch: SPEC : [id number] ANTHONY: 08/16/24 STATUS: COMP REQ : [id number] RECD: 08/16/[address]: Roma Garcia MD COMP: 08/16/24 ENTERED: 08/16/[address]: ORDERED: CBC Auto Diff Test Result Flag Reference WBC 5.9 4.8-10.8 X10*3/uL RBC 4.87 4.20-5.50 X10*6/uL HGB 14.2 12.0-16.0 g/dl HCT 43.6 37.0-47.0 % MCV 89.5 80.0-98.0 fL MCH 29.2 27.0-33.0 pg MCHC 32.6 31.0-35.0 g/dl RDW 12.3 11.0-16.0 % PLT 313 160-400 X10*3/uL MPV 10.4 9.4-12.3 fL Neut Pct Auto 53.6 45-73 % ImGran Pct Auto 0.2 0.0-0.4 % Lymp Pct Auto 37.8 20-40 % Ponce Pct Auto 6.7 2-11 % Eos Pct Auto 1.4 0-4 % Baso Pct Auto 0.3 0-2 % NRBC Pct Auto 0.0 0.0-0.2 /100WBC ANC Neut Abs # 3.1 2.0-8.3 x10*3/uL ImGran Abs Auto 0.01 0.00-0.03 X10*3/uL Lymph Abs Auto 2.2 1.2-4.9 X10*3/uL Ponce Abs Auto 0.4 0.1-1.2 X10*3/uL Eos Abs Auto 0.1 0.0-0.4 X10*3/uL Baso Abs Auto 0.0 0.0-0.2 X10*3/uL NRBC Abs Auto 0.000 0.0-0.012 X10*3/uL Name: Aziza Miner Age/Sex: 39/F : 1985 Unit#: [id number] Attend Dr: Roma Garcia MD Re08/16/24 Status: DEP [facility]F [facility] Disch: SPEC : [id number] ANTHONY: 08/16/24 STATUS: COMP REQ : [id number] RECD: 08/16/[address]: Roma Garcia MD COMP: 08/16/24 ENTERED: 08/16/24-1011 [facility] DR: ORDERED: Met Prof Fast, AST, ALT, Lipid Panel, Vitamin D 25-OH Test Result Flag Reference Sodium 137 135-145 mmol/L Potassium 3.8 3.3-5.1 mmol/L CL 106 96-108 mmol/L CO2 26 22-29 mmol/L Gap 9 L 12-20 BUN 8 L 9-16 mg/dL Creat 0.61 0.5-1.4 mg/dL eGFR > 60 Chronic Kidney Disease: Estimated GFR < 60 mL/min/1.73m2 Severe Kidney Disease: Estimated GFR < 15 mL/min/1.73m2 FBS 105 H 60-99 mg/dL A fasting glucose from 100-125 mg/dl is considered impaired (pre-diabetes). CA 8.8 # 8.4-10.2 mg/dL AST (GOT) 27 5-31 U/L ALT (GPT) 27 0-31 U/L Triglyceride 59 <150 mg/dL Desirable Triglyceride: less than 150 mg/dL Borderline High Triglyceride 150-199 mg/dL High Triglyceride: 200-499 mg/dL Very High Triglyceride: greater than or equal to 5OO mg/dL Cholesterol 146 <200 mg/dL Desirable Cholesterol: less than 200 mg/dL Borderline High Cholesterol: 200-239 mg/dL High Cholesterol: greater than 239 mg/dL LDL Calculated 84 <100 mg/dL Desirable LDL: less than 100 mg/dL Near Optimal/Above Optimal LDL: 110-129 mg/dL Borderline High LDL: 130-159 mg/dL High LDL: 160-189 mg/dL Very High LDL: greater than or equal to 190 mg/dL HDL 51 >40 mg/dL Desirable HDL: greater than 40 mg/dL Note: This HDL assay may give artificially low results in patients with liver disease. Vit D 25-OH Tot 49.7 >30 ng/mL Health Based Reference Values* < 20 ng/mL Deficient 20-30 ng/mL Insufficient > 30 ng/mL Sufficient Coding Level of Care Code Est Pt Level 4 (22968) Diagnoses Erythema intertrigo L30.4 Furunculosis of thigh L02.429 Impaired fasting glucose R73.01 Additional Codes PHQ-9 - 91687 - PHQ-9 Billing: Yes ([id number]) JOVITA-7 Assessment Billing - JOVITA-7 Assessment Tool: JOVITA-7 Assessment 21448 ([id number]) Assessment & Plan Assessment & Plan (1) Erythema intertrigo: Code(s): L30.4 - Erythema intertrigo Category: Medical Plan: Start using clotrimazole-betamethasone cream prescribed by walk-in clinic, 1 application once or twice a day for no more than 10 days at a time, keep areas clean and dry at all times, may try applying antiperspirant to prevent excess moisture from developing, prescription sent for nystatin powder, to apply to affected areas once or twice a day. A referral was already is made by the walk- in provider for her to see Dermatology, (2) Furunculosis of thigh: Code(s): L02.429 - Furuncle of limb, unspecified Category: Medical Plan: Prescription sent for doxycycline 100 mg per capsule to take 1 every 12 hours for 10 days (3) Impaired fasting glucose: Code(s): R73.01 - Impaired fasting glucose Category: Medical Plan: Your previous fasting blood sugars were elevated above 100 mg/dL. Impaired glucose metabolism increases the risk for developing diabetes mellitus type 2, as well as heart attack and stroke later on. Lifestyle changes that promotes weight loss, healthy eating habits, and regular exercise are important, and can prevent the progression to diabetes Medications: New nystatin 1 appl topical DAILY 30 grams 1RF Refilled doxycycline hyclate 100 mg PO BID 20 caps 0RF
[2024-11-01 11:17] VITALS: BP 106/70; PULSE 73; TEMP 36.6; O2SAT 98; BMI 29.8
== END 2024-11-01 11:38 | disposition home or self-care (01) ==
PROVIDERS: PCP Internal Medicine; Visit Provider Internal Medicine
DX: L30.4 Erythema intertrigo (principal); L02.429 Furuncle of limb, unspecified; R73.01 Impaired fasting glucose

== ENCOUNTER → 2024-11-01 10:44 | Outpatient (BNVA) | payer OTHER, SELFPAY | PROVIDERS: PCP Internal Medicine; Visit Provider Internal Medicine | DX: L30.4 Erythema intertrigo (principal); L02.429 Furuncle of limb, unspecified; R73.01 Impaired fasting glucose | CPT/HCPCS: 96127; 99212 ==

== ENCOUNTER 2025-07-07 11:49 | Outpatient (AMB) | payer OTHER, SELFPAY ==
[2025-07-07 12:18] VITALS: BP 132/80; PULSE 105; TEMP 36.8; O2SAT 99; BMI 29.8
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
--- OUTSIDE RECORDS SUMMARY | 2025-07-07 14:50 | XMS_ITS | Encounter Summary ---
Author Organization [facility] Address [address] [place] [id number] Phone Care Team Providers Care It Consulting Director Name Role Phone Unknown, Unknown Primary Care Provider Tung Thompson MD Primary Care Provider [phone] Roma Garcia MD Primary Care Provider Pcp, Unknown Unavailable Unavailable Ena Fernandez ELEMENTARY SUPERVISOR Unavailable [phone] Michael Crawford MD Unavailable Fariba Diego ELEMENTARY SUPERVISOR Unavailable [phone] Artemio Veloz MD Unavailable Maria Guadalupe Holly IN[employer]ER [employer]ING Unavailable [phone] Priti Giron MD Unavailable [phone] Argenis Ledesma MD Unavailable [phone] Laly Andrea ELEMENTARY SUPERVISOR Unavailable Orville Nguyen MD Unavailable [phone] Daisy Turpin ELEMENTARY SUPERVISOR Unavailable [phone] Encounter Details Date Type Department Care Team (Late st Contact Info) Description 05/19/2018 Procedure Pass [facility], Ct Scan - [address] [address] Social History Tobacco Use Types Packs/Day Years Used Date Smoking Tobacco: Smoker, Current Status Unknown Smokeless Tobacco: Current Alcohol Use Standard Drinks/Week Comments Yes 0 (1 standard drink = 0.6 oz pur e alcohol) Comments Unknown Sex and Gender Information Value Date Recorded Sex Assigned at Female 05/19/2018 4:50 PM EDT Legal Sex Female 9:12 PM EDT Gender Identity Female 05/19/2018 4:50 PM EDT Sexual Orientation Choose not to disclose 2017 4:50 PM EDT documented as of this encounter Plan of Treatment Not on file documented as of this encounter Visit Diagnoses Not on filedocumented in this encounter Care Teams It Consulting Director Relationship Specialty Start Date End Date Unknown, Unknown, MD PCP - General 05/19/18 11/21/19 Tung Villalta MD [facility] [place] [id number] PCP - General Internal Medicine 11/22/19 05/12/22 Roma Garcia MD [address] [place] [address] Dr [place] PCP - General Internal Medicine 05/13/22 Pcp, Unknown 05/19/18 Ena Fernandez NP [address] [place] [id number] [email or web address] Historical LMR Provider 06/29/17 Michael Crawford MD [address] [place] [address], [address] [place] [address] Historical LMR Provider 06/29/17 09/15/21 Fariba Diego ELEMENTARY SUPERVISOR [address] [place] [id number] Historical LMR Provider 06/29/17 Artemio Davey MD [address] [place] [id number] Historical LMR Provider 06/29/17 09/15/21 viral Maria Guadalupe EmersonFRANKY [address] [place] [address], [address] [place] [address] Historical LMR Provider 06/29/17 09/15/21 Priti Giron MD [address] [place] [id number] Historical LMR Provider 06/29/17 Argenis Ledesma MD [address] [place] [address], [address] [place] [address] Historical LMR Provider 06/29/17 09/15/21 Laly Andrea NP [address] [place] [address] Historical LMR Provider 06/29/17 2 Orville Nguyen MD [address] [place] [address] Historical LMR Provider 06/29/17 09/15/21 Daisy Turpin ELEMENTARY SUPERVISOR [address] [place] [address] [address] [place] [address] Historical LMR Provider 06/29/17 09/15/21 documented as of this encounter Additional Source Comments The information contained in this document represents components of the legal health record. It is not the complete legal health record.[facility]
--- OUTSIDE RECORDS SUMMARY | 2025-07-07 14:50 | XMS_ITS | Clinical Summary ---
Author Organization [facility] Address [address] [place] [address] Phone Care Team Providers Care Contract Accountant Name Role Phone Roma Garcia MD Primary Care Provider Pcp, Unknown Unavailable Unavailable Priti Giron MD Unavailable [phone] Allergies Active Allergy Reactions Criticality Noted Date Comments Amoxicillin 06/03/2022 Latex 03/21/2025 Sulfamethoxazole-Trimethoprim 2021 Medications dexmethylphenid ate (FOCALIN XR) 30 mg MP50 Take 1 capsule by mouth every morning. 07/28/2023 Active sertraline (ZOLOFT) 25 MG tablet Take 1.5 tablets by mouth every morning. 07/15/2023 Active LORazepam (ATIVAN) 0.5 MG tablet Take 0.5 mg by mouth every 6 (six) hours as needed for anxiety. PRM Active dextroamphetami ne-amphetamine (ADDERALL) 30 mg Tab tablet Take 30 mg by mouth daily. Active cholecalciferol (VITAMIN D3) 50,000 unit tablet Take 1,250 mcg by mouth every 7 days. Active Hospital, Clinic, or Other Facility Administered Medication Ordered Dose Route Frequency Start Date End Date Status levonorgestreL (MIRENA) 20 mcg/24 hours (6 yrs) 52 mg intrauterine device 1 each 1 each Utrn Every 5 years 10/06/2020 Active Active Problems Problem Noted Date Diagnosed Date Postcoital bleeding 04/15/2025 Cervical polyp 10/13/2020 Dysmenorrhea 11/23/2019 Assessment & Plan (11/23/2019 7:26 PM EDT): IUD in place for cycle control - dysmenorrhea previously well controlled now less so at end of IUD time frame. Discussed early removal/reinsertion with patient, she is amenable to this plan. Will schedule appointment. IUD (intrauterine device) in place 11/23/2019 Overview (10/06/2020): Mirena 2014 Mirena removed and reinserted 10/06/20 Encounters Date Type Department Care Team Description 04/29/2025 Telephone [facility] [address] [place] [address] [place] [address] Raz er, Sarah Cramer, AMAYA PO 04/15/2025 1:41 PM EDT - 04/15/2025 2:28 PM EDT Surgery OR Admitting Dept - Virtual Department [address] [place] [address] Orville Nguyen MD DILATION AND CURETTAGE WITH HYSTEROSCOPY 04/15/2025 1:25 PM EDT Anesthesia Event OR Admitting Dept - Virtual Department [address] [place] [phone] April Balderas MD, PhD Hard, Hayde Nieto, INFORMATION TECHNOLOGY INTERN 04/15/2025 11:47 AM EDT - 04/15/2025 4:07 PM EDT Hospital Encounter OR Admitting Dept - Virtual Department [address] [place] [address] Orville Nguyen MD Discharge Disposition: Home or Self Care 04/15/2025 Procedure Pass OR Admitting Dept - Virtual Department [address] [place] [id number] 04/14/2025 8:30 AM EDT Pre-Admission Testing Pre Procedure Evaluation [address] [place] [address] Orville Nguyen MD from Last 3 Months Immunizations Immunization Administration Dates Next Due INFLUENZA, SPLIT VIRUS, TRIVALENT PF 05/15/2016 Tdap 12/09/2011 Family History Medical History Relation Comments Diabetes mellitus Maternal Grandfather 2 CV disease Maternal Grandmother 2 Cancer Paternal Grandmother 2 Relation Status Comments Maternal Grandfather 1 Maternal Grandfather 2 Maternal Grandmother 1 Maternal Grandmother 2 Paternal Grandmother 1 Paternal Grandmother 2 Social History Tobacco Use Types Packs/Day Years Used Date Smoking Tobacco: Former Cigarettes Smokeless Tobacco: Never Tobacco Cessation:Counseling Given: Not Answered Comments:Quit 09/2024 Alcohol Use Standard Drinks/Week Comments Yes 0 (1 standard drink = 0.6 oz pur e alcohol) x 2 a year Education Answer Date Recorded Are you interested in more education? Not on jeannie e 01/03/2023 Are you concerned about learning? Not on file 01/03/2023 No 01/03/2023 No 01/03/2023 Digital Access Answer Date Recorded No 01/31/2023 No 01/31/2023 Reliable internet access at home? Not on file 01/31/2023 Device with a working camera? Not on file Comments No Sex and Gender Information Value Date Recorded Sex Assigned at Female 05/19/2018 4:50 PM EDT Legal Sex Female 9:12 PM EDT Gender Identity Female 05/19/2018 4:50 PM EDT Sexual Orientation Choose not to disclose 2017 4:50 PM EDT Last Filed Vital Signs Vital Sign Reading Time Taken Comments Blood Pressure 96/59 04/15/2025 3:46 PM EDT Pulse 70 04/15/2025 3:46 PM EDT Temperature 36.5 C (97.7 F) 04/15/2025 3:46 PM EDT Respiratory Rate 16 04/15/2025 3:46 PM EDT Oxygen Saturation 98% 04/15/2025 3:46 PM EDT Inhaled Oxygen Concentration - - Weight 90.7 kg (200 lb) 04/04/2025 1:23 PM EDT Height 174 cm (5' 8.5 ) 04/04/2025 1:23 PM EDT Body Mass Index 29.97 04/04/2025 1:23 PM EDT Plan of Treatment Health Maintenance Due Date Last Done Comments DEPRESSION SCREENING 1998 SMOKING Hx and SMOKELESS TOBACCO SCREENING 1999 INFLUENZA VACCINE (#1) 2025 4, 09/07/2023, 06/17/2022, Additional history exists SCREENING FOR DIABETES 04/30/2025 04/30/2022 COVID-19 VACCINE ( season) 2025 09/07/2023, 08/30/2022, 06/17/2021, Additional history exists PAP SMEAR 03/21/2028 03/21/2025, 09/09, 11/22/2019, Additional history exists Adult Td,Tdap Booster 11/12/2028 11/12/2018, 012 IUD 04/15/2033 04/15/2025 HEPATITIS C SCREENING Completed 03/21/2025 HIV ONE-TIME SCREENING (18-65 YEARS) Completed 03/21/2025 HEPATITIS A VACCINES Aged Out No long er eligible based on patient's age to complete this topic HIB VACCINES Aged Out No longer eligi ble based on patient's age to complete this topic MENINGOCOCCAL VACCINES (ACWY) Aged Out No longer eligible based on patient's age to complete this topic MENINGOCOCCAL VACCINES (B) Aged Out N o longer eligible based on patient's age to complete this topic PNEUMOCOCCAL VACCINES (0-49 years) Aged Out No longer eligible based on patient's age to complete this topic Medical Devices Implanted Type Area Rum Processing Operator Device Identifier Shelf Expiration Date Model / Serial / Lot Iud Implanted: (Quantity not on file) Intrauterine Device Procedures Procedure Name Priority Date/Time Associated Diagnosis Comments GA REMOVE INTRAUTERINE DEVICE 04/15/2025 1:25 PM EDT PCB (post coital bleeding) Endocervical polyp GA INSERT INTRAUTERINE DEVICE 04/15/2025 1:25 PM EDT PCB (post coital bleeding) Endocervical polyp GA HYSTEROSCOPY,W/ENDO BX 04/15/2025 1:25 PM EDT PCB (post coital bleeding) Endocervical polyp URINE HCG STAT 04/15/2025 12:22 PM EDT ANATOMIC PATHOLOGY Routine 04/15/2025 12 :00 AM EDT HEPATITIS C ANTIBODY, QUALITATIVE Routine 03/21/2025 12:29 PM EDT Screening for STD (sexually transmitted disease) PAP TEST Routine 03/21/2025 12:00 AM EDT from Last 3 Months or Most Recently Relevant to Health Maintenance Results * HCG, urine (04/15/2025 12:22 PM EDT) URINE TEST Negative Negative [facility] Urine (Urine) 04/15/2025 12: 22 PM EDT 04/15/2025 12:26 PM EDT Orville Nguyen MD URINE ORDERABLES Final Result [address] [address] * Anatomic Pathology (04/15/2025 12:00 AM EDT) [place] [address] [employer] Application Consultant: Juna Jose Beverly MD Surgical Pathology Report FINAL PATHOLOGIC DIAGNOSIS: A. CERVIX, POLYPECTOMY: Benign endocervical polyp. B. ENDOMETRIAL CURETTINGS: Disaggregated fragments of benign endometrial glands and benign endocervical glands. Electronically Signed Out By Garry Alejandro MD By his/her signature above, the pathologist listed as making the Final Diagnosis certifies that he/she has personally reviewed this case and confirmed or corrected the diagnosis. CLINICAL HISTORY Post coital bleeding, endocervical polyp SPECIMENS SUBMITTED: A: CERVIX, POLYPECTOMY B: ENDOMETRIAL CURETTINGS GROSS DESCRIPTION A. CERVIX, POLYPECTOMY: Formalin: Is a polypoid soft 0.6 cm hemorrhagic fragment, bisected and entirely submitted in A1. B. ENDOMETRIAL CURETTINGS: Formalin: Is a 1 cm hemorrhagic aggregate, entirely submitted B1. DN 04/15/2025 Grossing Staff: VIANNEY Patient Name: CATHERINE MINER : 1985 (Age: 39) Sex: F [facility] Date of Operation: 04/15/2025 Date of Reported: 04/18/2025 12:09 Results To: Orville Nguyen MD, BS Roma Garcia MD [facility] Clinical History Post coital bleeding, endocervical polyp [facility] Final Diagnosis A. CERVIX, POLYPECTOMY: Benign endocervical polyp. B. ENDOMETRIAL CURETTINGS: Disaggregated fragments of benign endometrial glands and benign endocervical glands. [facility] Gross Description A. CERVIX, POLYPECTOMY: Formalin: Is a polypoid soft 0.6 cm hemorrhagic fragment, bisected and entirely submitted in A1. B. ENDOMETRIAL CURETTINGS: Formalin: Is a 1 cm hemorrhagic aggregate, entirely submitted B1. [facility] Conversion Type 04/15/2025 2:34 PM EDT Orville Nguyen MD PATHOLOGY ORDERABLES Edited R esult - Final Performing Organization Address [facility] Co de Phone Number [address] [address] * Hepatitis C antibody, qualitative (03/21/2025 12:29 PM EDT) HCV NON-REACTIV E NON-REACTI VE [facility] Blood 03/21/2025 12:2 9 PM EDT 03/21/2025 12:36 PM EDT Orville Nguyen MD LAB BLOOD ORDERABLES Final Re sult Performing Organization Address [facility] de Phone Number [address] [address] * Pap Test (03/21/2025 12:00 AM EDT) Report [address] [address] Oracle Application Consultant: Juan Jose Beverly MD [employer] Cytology Report FINAL DIAGNOSIS A. PAP SMEAR (THIN PREP) CE: SPECIMEN ADEQUACY: Satisfactory for evaluation; transformation zone present. INTERPRETATION: NEGATIVE FOR INTRAEPITHELIAL LESION OR MALIGNANCY. This specimen was analyzed by the automated ThinPrep Imaging System ([employer] Tanya.) and manually rescreened by a floral merchandiser and/or pathologist. Due to blood, the specimen was reprocessed with 10% Glacial Acetic Acid. Electronically Signed Out By: ML Dey(ASCP) The Pap test is a screening test primarily for squamous cancers and precursors and has associated false-negative and false-positive results. New technologies such as liquid-based preparations may decrease but will not eliminate all false-negative results. Regular sampling and follow-up of unexplained clinical signs and symptoms are recommended to minimize false negative results. PROCEDURES/ADDENDA HPV Testing (Requested) Ordered Date: 03/22/2025 A. PAP SMEAR (THIN PREP) CE: High-risk HPV Panel w/ extended genotyping NEG HPV 16-NEG HPV 18-NEG HPV 45-NEG HPV 33/58-NEG HPV 31-NEG HPV 56/59/66-NEG HPV 51-NEG HPV 52-NEG HPV 35/39/68-NEG Performed by real-time polymerase chain reaction (PCR) at [address] using the FDA-approved [employer] Onclarity HPV Assay with extended genotyping. Uses of the assay in scenarios other than those approved by the FDA should be considered off-label use. The accuracy and precision of this test for all other off-label specimen sources has been verified in the Cytopathology Laboratory of the [facility] and has not been cleared or approved by the U.S. Food and Drug Administration. Clinical correlation is advised. The assay assesses the E6/E7 DNA target and utilizes human beta globin as an internal control. Cytology and HPV testing are screening assays and should not be used as the sole means of detecting cancer. False-positives and false-negatives can occur. CLINICAL HISTORY Date of Last Menstrual Period: Not Provided Menstrual History: Unknown Treatment History: Hormone Therapy Other Clinical Conditions: Screening Pap SPECIMEN SOURCE A: PAP SMEAR (THIN PREP) CE Patient Name: CATHERINE MINER : 1985 (Age: 39) Sex: F Institution: [facility] Location: [facility] Date of Collection: 03/21/2025 Date of Reported: 03/25/2025 13:24 Results to: Orville Nguyen MD, BS [facility] Final Diagnosis A. PAP SMEAR (THIN PREP) CE: SPECIMEN ADEQUACY: Satisfactory for evaluation; transformation zone present. INTERPRETATION: NEGATIVE FOR INTRAEPITHELIAL LESION OR MALIGNANCY. This specimen was analyzed by the automated ThinPrep Imaging System ([employer] and manually rescreened by a floral merchandiser and/or pathologist. Due to blood, the specimen was reprocessed with 10% Glacial Acetic Acid. [facility] Results\Inte rpretation A. PAP SMEAR (THIN PREP) CE: High-risk HPV Panel w/ extended genotyping NEG HPV 16-NEG HPV 18-NEG HPV 45-NEG HPV 33/58-NEG HPV 31-NEG HPV 56/59/66-NEG HPV 51-NEG HPV 52-NEG HPV 35/39/68-NEG Performed by real-time polymerase chain reaction (PCR) at [facility], [address] [place] [address] using the FDA-approved [employer] Onclarity HPV Assay with extended genotyping. Uses of the assay in scenarios other than those approved by the FDA should be considered off-label use. The accuracy and precision of this test for all other off-label specimen sources has been verified in the Cytopathology Laboratory of the [facility] and has not been cleared or approved by the U.S. Food and Drug Administration. Clinical correlation is advised. The assay assesses the E6/E7 DNA target and utilizes human beta globin as an internal control. Cytology and HPV testing are screening assays and should not be used as the sole means of detecting cancer. False-positives and false-negatives can occur. [facility] Conversion Type (Conversion Source) 03/21/2025 03/22/2025 9:44 AM EDT us Orvilel Nguyen MD CYTOLOGY ORDERABLES Edited Re sult - Final [facility] [address] [place] [address] from Last 3 Months or Most Recently Relevant to Health Maintenance Insurance WE[employer] NON NSPG PCP [employer] NON NSPG PCP [employer] NON NSPG PCP [employer] NON NSPG PCP S[employer] CONNECTORCARE [employer] NON NSPG PCP [employer] CONNECTORCARE [facility] NON NSPG PCP S[employer] CONNECTORCARE [employer] NON NSPG PCP [employer] CONNECTORCARE [facility] NON NSPG PCP S[employer] [facility] NON NSPG PCP [place] [employer] Care Teams Contract Accountant Relationship Specialty Start Date End Date Roma Garcia MD [facility] [place] [address] PCP - General Internal Medicine 05/13/22 Pcp, Unknown 05/19/18 Priti Giron MD [address] [place] [address], [address] [place] [address] [email or web address] Historical LMR Provider 06/29/17 Additional Source Comments The information contained in this document represents components of the legal health record. It is not the complete legal health record.[facility]
--- OUTSIDE RECORDS SUMMARY | 2025-07-07 14:50 | XMS_ITS | Encounter Summary ---
Author Organization [facility] Address [address] [place] [phone] Phone Care Team Providers Care Child Welfare Caseworker Name Role Phone Roma Garcia MD Primary Care Provider Pcp, Unknown Unavailable Unavailable Priti Giron MD Unavailable [phone] Encounter Details Date Type Department Care Team (Late st Contact Info) Description 04/15/2025 Procedure Pass OR Admitting Dept - Virtual Department [address] [place] [address] Social History Tobacco Use Types Packs/Day Years Used Date Smoking Tobacco: Former Cigarettes Smokeless Tobacco: Never Comments:Quit 09/2024 Alcohol Use Standard Drinks/Week Comments [...] on filedocumented in this encounter Care Teams Child Welfare Caseworker Relationship Specialty Start Date End Date Roma Garcia MD [facility] [place] [address] PCP - General Internal Medicine 05/13/22 Pcp, Unknown 05/19/18 Priti Giron MD [address] [place] [address], [address] [place] [address] [email or web address] Historical LMR Provider 06/29/17 documented as of this encounter Additional Source Comments The information contained in this document represents components of the legal health record. It is not the complete legal health record.[facility]
== END 2025-07-07 13:02 | disposition home or self-care (01) ==
PROVIDERS: PCP Internal Medicine; Visit Provider Nurse Practitioner Family
DX: M54.6 Pain in thoracic spine (principal)